=== PATIENT | female | born 1935 | race Caucasian/White ===

== ENCOUNTER 2017-07-28 07:10 | Inpatient (IN) | payer MEDICARE, OTHER ==
[2017-07-27 13:57] VITALS: BMI 25.8
[2017-07-28] VITALS (33 sets, daily range): BP systolic 85–169; BP diastolic 40–79; PULSE 66–112; RESP 8–23; Ht 165.1 cm; Wt 71.7 kg
[~2017-07-28] VITALS: Ht 165.1 cm; Wt 71.7 kg
[~2017-07-28 07:10] MED LIST: SUCCINYLCHOLINE CHLORIDE 100 MG/5 ML SYG IV ONE
[2017-07-28] MEDS ORDERED: WARF2TAB PO (07:55)
[2017-07-28] MEDS ORDERED: WARF4TAB52 PO (07:55)
[2017-07-28] MEDS ORDERED: BISO5TAB21 PO (07:56)
[2017-07-28] MEDS ORDERED: MAXZ25 PO (07:59)
[2017-07-28] MEDS ORDERED: CHOL100062 PO (08:00)
[2017-07-28] MEDS ORDERED: OXYC5CAP17 PO (08:02)
[2017-07-28] MEDS ORDERED: BIOT800T PO (08:03)
[2017-07-28 08:38] LABS: INR 0.95; PROTIME 12.7 Sec (12.2-14.2)
[2017-07-28 08:39] LABS: PARTIAL THROMBOPLASTIN TIME 25.3 Sec (25.0-35.0)
--- NOTE | 2017-07-28 09:48 | HPN ---
Date/Time of Note Date/Time of Note DATE: 07/28/17 TIME: 09:48 Interval H&P Admission Note Pt. seen H&P reviewed: No system changes RICK BECKMAN MD Jul 28, 2017 09:48
[2017-07-28] MEDS ORDERED: CEFAZOLIN 2 GM/50 ML (PMX) 50 ML IVPB ONE (10:07)
[2017-07-28] MEDS ORDERED: THROMBIN 5000 UNIT VIAL ONE (10:08)
[2017-07-28] MEDS ORDERED: BUPIVACAINE 0.25% (MPF) 10 ML 10 ML VIAL ONE (10:08)
[2017-07-28] MEDS ORDERED: GELATIN SIZE 100 SPONGE ONE (10:08)
[2017-07-28] MEDS ORDERED: POLYMYXIN/BACITRACIN 1L IRRIG ONE (10:08)
[2017-07-28] MEDS ORDERED: LIDOCAINE 1% (MDV) 20 ML INJ ONE (10:16)
[2017-07-28] MEDS ORDERED: ROCURONIUM 50 MG INJ ONE ×2 (10:16→11:07)
[2017-07-28] MEDS ORDERED: PROPOFOL 20 ML ONE (10:16)
[2017-07-28] MEDS ORDERED: MIDAZOLAM 1 MG/ML 2 ML INJ ONE (10:16)
[2017-07-28] MEDS ORDERED: FENTAnyl 50 MCG/ML VIAL ONE ×3 (10:16→12:34)
[2017-07-28] MEDS ORDERED: PHENYLephrine (100 MCG/ML) 5ML SYG ONE ×3 (10:39→12:11)
[2017-07-28] MEDS ORDERED: DEXAMETHASONE 4 MG/ML 1 ML INJ ONE (11:04)
[2017-07-28] MEDS ORDERED: ONDANSETRON 4 MG INJ ONE (11:04)
[2017-07-28] MEDS ORDERED: FAMOTIDINE 20 MG INJ ONE (11:04)
[2017-07-28] MEDS ORDERED: hydrALAzine 20 MG INJ ONE (11:12)
--- NOTE | 2017-07-28 11:45 | RADRPT ---
PROCEDURE: XR Lumbar Spine one view. CLINICAL INDICATION: Low back pain. Intraoperative. TECHNIQUE: Prone portable cross-table lateral. COMPARISON: No prior studies are available for comparison. FINDINGS: For the purposes of this report, the last apparent true disc level is considered to be L5-S1. Based on this, the posterior needle markers are present at the L2-3 level and L5-S1 level. IMPRESSION: 1. Intraoperative imaging as described above. RPTAT: QQ .Austen Hull MD, MD Date Time Electronically viewed and signed by .Austen Hull MD, MD on 07/28/2017 11:45 .R/
--- NOTE | 2017-07-28 11:47 | RADRPT ---
PROCEDURE: XR Lumbar Spine one view. CLINICAL INDICATION: Low back pain. Intraoperative. TECHNIQUE: Prone portable cross-table lateral. COMPARISON: No prior studies are available for comparison. FINDINGS: For the purposes of this report, the last apparent true disc level is considered to be L5-S1. Based on this, the posterior surgical instruments are present at the L3, L4, and L5 spinous process level s. IMPRESSION: 1. Intraoperative imaging as described above. Call report: A call report of the findings was made to the operating room on 07/28/[address] [place] [address]. RPTAT: QQ .Austen Hull MD, MD Date Time Electronically viewed and signed by .Austen Hull MD, MD on 07/28/2017 11:46 .R/
[2017-07-28] MEDS ORDERED: LABETALOL HCL 20MG INJ IV PRN (12:30)
[2017-07-28] MEDS ORDERED: ONDANSETRON 4 MG INJ IV PRN (12:30)
[2017-07-28] MEDS ORDERED: DIPHENHYDRAMINE 50 MG INJ IV PRN (12:30)
[2017-07-28] MEDS ORDERED: METOCLOPRAMIDE 10 MG INJ IV PRN (12:30)
[2017-07-28] MEDS ORDERED: HYDROmorphONE (0.2 MG/ML) 10ML SYG IV PRN (12:30)
[2017-07-28] MEDS ORDERED: MEPERIDINE 25 MG INJ IV PRN (12:30)
[2017-07-28] MEDS ORDERED: FENTAnyl 50 MCG/ML VIAL IV PRN ×2 (12:30)
[2017-07-28] MEDS ORDERED: hydrALAzine 20 MG INJ IV PRN (12:30)
[2017-07-28] MEDS ORDERED: NALOXONE (0.4 MG/ML) INJ ONE (13:01)
[2017-07-28] MEDS ORDERED: ESMOLOL 10 ML ONE (13:01)
[2017-07-28] MEDS ORDERED: SUGAMMADEX SODIUM 200 MG/2 ML VIAL IV ONE ×2 (13:03→13:16)
[2017-07-28] MEDS ORDERED: BACITRACIN 0.9 GM OINT ONE (13:25)
--- NOTE | 2017-07-28 13:48 | SIPON ---
Date/Time of Note Date/Time of Note DATE: 07/28/17 TIME: 13:39 Operative Report Preoperative Diagnosis Lumbar spinal stenosis at L2-L3-L4 and L5 Postoperative Diagnosis Same Operation/Procedure Performed Central decompressive laminectomy at L2 Central decompressive laminectomy at L3 Central decompressive laminectomy at L4 Central decompressive laminectomy at L5 Medial facetectomy and foraminotomy at L2-3, L3-4, L4-5, and L5-S1. Lateral localizing lumbar radiographs (2) Intraoperative nerve monitoring (120 minutes) Surgeon see signature line tourist information assistant Judith BRAYA Anesthesia: general Estimated blood loss: 50 - 100 ml's Transfusion Required none Specimen Spinous processes of L2-L3-L4 and L5 Grafts/Implants none Complications none RICK BECKMAN MD Jul 28, 2017 13:48
[2017-07-28] MEDS ORDERED: DIAZEPAM 5 MG TAB PO PRN (14:00)
[2017-07-28] MEDS ORDERED: DIAZEPAM 5 MG/ML SYG IM PRN (14:00)
[2017-07-28] MEDS ORDERED: AL HYDROX/MG HYDROX/SIMETH 30 ML CUP PO PRN (14:00)
[2017-07-28] MEDS ORDERED: PROCHLORPERAZINE 10 MG TAB PO PRN (14:00)
[2017-07-28] MEDS ORDERED: DIPHENHYDRAMINE 50 MG CAP PO PRN (14:00)
[2017-07-28] MEDS ORDERED: NALOXONE (0.4 MG/ML) INJ IV PRN (14:00)
[2017-07-28] MEDS: HYDROmorphONE (0.2 MG/ML) 10ML SYG IV PRN ×2 (14:00→14:10)
[2017-07-28] MEDS ORDERED: ZOLPIDEM 5 MG TAB PO PRN (14:00)
[2017-07-28] MEDS ORDERED: NACL 0.9% 3 ML SYG IV SCH (14:00)
[2017-07-28] MEDS ORDERED: CEPASTAT LOZENGE MT PRN (14:00)
[2017-07-28] MEDS ORDERED: TRIMETHOBENZAMIDE 100 MG/ML VIAL IM PRN (14:00)
[2017-07-28] MEDS ORDERED: BETHANECHOL 25 MG TAB PO PRN (14:00)
[2017-07-28] MEDS ORDERED: HYDROCODONE/APAP (5/325) TAB PO PRN (14:00)
[2017-07-28] MEDS ORDERED: HYDROmorphONE 0.2 MG/ML PCA IV SCH (14:00)
[2017-07-28] MEDS: DEXTROSE 5%-0.45% NACL 1,000 ML IV SCH ×2 (16:01→23:19)
--- NOTE | 2017-07-28 16:02 | OPR ---
DATE OF OPERATION: 07/28/2017 PREOPERATIVE DIAGNOSIS: Multilevel lumbar spinal stenosis, (L2- L5). POSTOPERATIVE DIAGNOSIS: Multilevel lumbar spinal stenosis, (L2- L5). OPERATIVE PROCEDURES: 1. Central decompressive laminectomy at L2. 2. Central decompressive laminectomy at L3. 3. Central decompressive laminectomy at L4. 4. Central decompressive laminectomy at L5. 5. Medial facetectomy and foraminotomy, L2-L3, L3-L4, L4-L5, and L5-S1 bilaterally. 6. Cosmetic wound closure (14 cm). 7. Lateral localized lumbar radiographs (2). 8. Intraoperative nerve monitoring (2 hours). SURGEON: Kristian Garcia MD WINDMILL MECHANIC: ALEX Ortiz ANESTHESIA: General tracheal. ANESTHESIOLOGIST: Dr. Wallace ESTIMATED BLOOD LOSS: 120 mL - none replaced. DRAINS: Two medium Hemovac drains applied. COMPLICATIONS: No complications. PERTINENT HISTORY AND PHYSICAL: The patient is an 82-year-old female with persistent back and lower extremity complaints, left greater than right, which have been unrelieved by extensive conservative management. She has undergone a number of diagnostic studies including an MRI of the lumbar spine, which demonstrates severe spinal stenosis at L2, L3, L4, and L5 with multilevel spondylosis. Treatment options were discussed with the patient, she elected to proceeed with surgery. OPERATIVE FINDINGS AT SURGERY: Multilevel severe spinal stenosis was confirmed. The baseline intraoperative nerve monitoring revealed a decrease in the left L2 potential 30 percent. The left L3 potential of 40 percent. The left L4 potential of 40 percent. The right L4 potential 30 percent and the L5 potentials bilaterally with 30 percent down these all returned to normal at the completion of the surgery. OPERATIVE PROCEDURE: With the patient supine position, after satisfactory induction of general endotracheal anesthesia by Dr. Wallace, the patient was turned to the prone kneeling position onto the [place] frame. All pressure points were carefully padded. The back was prepped and draped in the usual sterile fashion. Athrombic pumps were applied to legs below the knees. Venous stasis during and after procedure. An indwelling Short catheter was also placed preoperative to facilitate bladder drainage during and after procedure. An arterial line was placed by Dr. Wallace in the patient's left wrist for blood pressure monitoring. The 2 spinal needles were placed next at the L2 and L5 spinous processes, lateral radiograms were taken, which confirmed anatomic localization. A 14 cm incision was then carried out midline from L2 to the sacrum through skin and subcutaneous tissue to the deep fascia after the skin was infiltrated with 0.25 percent Marcaine without epinephrine for postoperative analgesia. Superficial retractors were placed. Hemostasis secured with electrocautery. Throughout the procedure copious amounts of antibacterial irrigating solution used to periodically irrigate the wound. The fascia was incised in the midline with a hot knife and a bilateral subperiosteal dissection carried out from L2 to the sacrum. Deep retractors were placed and deep hemostasis secured with electrocautery. A 2nd intraoperative radiograph was taken with Amanda clamps, placement was felt to be the spinous process of L3, L4, and L5. This was confirmed on the 2nd x-ray. A central decompressive laminectomy at L5, L4, L3 and L2 was then carried out using a Radha right angle bone rongeur, Leksell rongeur, Kerrison punches and curettes. Ligamentum flava was sized with sharp dissection. The operating microscope then moved into place. A medial facetectomy and foraminotomy was then accomplished using a small hand osteal mallet, Kerrison punch and curettes at L2-3, L3-4, L4-5, and L5, S1 bilaterally. The epidural hemostasis was secured with bipolar electrocautery on a low setting. The anesthesiologist was then asked to perform a Valsalva maneuver to 40 mmHg. No spinal fluid was noted. The wound was then closed in layers over 2 medium Hemovac drains, 1 below the fascia, 1 above the fascia using number 1 Vicryl Stratafix sutures on the deep parietal musculature and deep fascia back to 0 Vicryl Stratafix sutures on the subcu tissue and a 4-0 Vicryl subcuticular cosmetic closing suture on the skin. Dermabond and sterile compressive dressings were applied. The patient having tolerated the procedure well was then turned supine position onto her bed and extubated by Dr. Wallace. She was transported to the recovery room in satisfactory condition. At the conclusion of the procedure, sponge, instrument, and needle counts were all correct. NEED FOR ASSOCIATE PROFESSOR OF SURGERY: During this spinal surgical procedure, my dental assistant teacher was used to retract and protect the spinal nerves and dural sac. My dental assistant teacher also employed the suction catheters to evacuate blood from the surgical field to improve visualization of the neural structures. The dental assistant teacher was medically necessary to facilitate the completion of the surgery in a safe and expeditious manner. State of [place] regulations, as well as hospital bylaws, preclude the use of non- licensed health care personnel such as operating room technicians, to perform these functions. Throughout the procedure neuro monitoring was carried out by [employer] including EMG, SSEP and MEP monitoring of the L2, L3, L4, L5 and S1 nerve roots bilaterally along with spinal cord potentials. These were interpreted by a neurologist employed by [employer]. Dictated By: Kristian Garcia MD /leann/gregory /Document#: [id number] CC: Ritesh Young MD
--- NOTE | 2017-07-28 16:06 | RADRPT ---
PROCEDURE: US Lower extremity Venous. CLINICAL INDICATION: Bilateral lower extremity edema TECHNIQUE: Multiple sonographic images of the bilateral lower extremity deep venous system was obt ained utilizing grayscale, color-flow, compressive sonography and doppler imaging with augmentation. The images were reviewed on a PACS workstation. COMPARISON: None. FINDINGS: There is normal compressibility and flow within the bilateral common femoral, femoral , posterior ti bial and popliteal veins. RPTAT: AA IMPRESSION: No sonographic evidence for deep venous thrombosis. .Keith Turcios MD, MD Date Time Electronically viewed and signed by .Keith Turcios MD, on 07/28/2017 16:06 .S/
[2017-07-28] MEDS: CEFAZOLIN 1 GM/50 ML (PMX) 50 ML IVPB SCH (17:59)
--- NOTE | 2017-07-28 18:14 | CONS ---
DATE OF ADMISSION: 07/28/2017 DATE OF CONSULTATION: 07/28/2017 INTERNAL MEDICINE CONSULTATION: REQUESTING PHYSICIAN: Kristian Garcia MD REASON FOR CONSULTATION: Postoperative internal medicine evaluation and management of an 82-year-old woman with multiple medical problems who just completed lumbar spine surgery. The patient is seen in the recovery room, relatively alert, answered questions quite appropriately without any significant problems. Significant past history most relevant to the surgery is the fact that she had pulmonary embolus, source was never found, and she has been taking Coumadin on a daily basis. This was stopped about 4-5 days prior to the surgery. Her other medical conditions, which are numerous, are well described in her preoperative medical history and physical as well as her preoperative cardiac consultation/clearance. Of note, from a surgical standpoint, has had right shoulder surgery, suffers from both lumbar and cervical spine issues. Surgery left hand and had a hysterectomy as well as an oophorectomy and a bladder repair done in the past from a medical standpoint. She has had a stroke. She was diagnosed with a DVT somewhere along the line and also being treated for a variety of other medical issues including arthritis and hyperlipidemia and hypertension. SOCIAL HISTORY: She is a , has one daughter and 2 sons. She quit smoking 30 years ago and is currently tobacco free. FAMILY HISTORY: Basically positive for heart disease as well as hypertension and kidney failure. ALLERGIES: SHE HAS NO KNOWN ALLERGIES TO ANY MEDICATIONS. MEDICATIONS: She is currently taking the following medications as gleaned from the chart: 1. Aspirin 81 mg a day. 2. Biotin 600 mg a day. 3. Bystolic 5 mg a day. 4. Oxycodone 10 mg p.r.n. 5. Potassium chloride 10 mEq. 6. Maxzide 37.5/25 mg a day. 7. A variety of different vitamin supplementations. She was complaining of some back pain and lower extremity pain and the patient was admitted, transferred from the recovery room to the intensive care unit for further monitoring and evaluation. PHYSICAL EXAMINATION: VITAL SIGNS: Blood pressure 100/67, temperature 97.3, pulse monitor is 109, pulse oximetry was 95 percent and respiratory rate was 15. HEENT: Unremarkable. NECK: Supple. LUNGS: Clear. HEART: Revealed a regular rhythm. ABDOMEN: Did not reveal any significant organomegaly, masses or tenderness. EXTREMITIES: Revealed some mild trace edema with no real tenderness and pulses were intact. IMPRESSION: 1. Status post lumbar spine surgery. 2. History of pulmonary embolus. 3. History of cerebrovascular accident. 4. History of deep venous thrombosis. 5. Hypertension. 6. Spinal stenosis. 7. Multinodular goiter. 8. Gout. 9. Chronic hoarseness. PLAN: To obtain a venous Doppler both lower extremities which was done and was reported as being negative. Her preoperative medicines were continued. We will continue to monitor her in terms of her general medical condition. Condition postop is stable. On my second visit to see her in the ICU, the patient is doing quite well and will be kept here at least overnight. Thank you again, Dr. Garcia, for allowing us to participate in the care of this patient. Will follow with you. Dictated By: Ritesh Yonug MD /leann/roberto /Document#: [id number]
[2017-07-28] MEDS: RANITIDINE 150 MG TAB PO SCH (20:25)
[2017-07-29] VITALS (27 sets, daily range): BP systolic 72–167; BP diastolic 38–137; PULSE 52–92; RESP 9–28
[2017-07-29] MEDS: ONDANSETRON 4 MG INJ IV PRN ×3 (01:54→14:08)
[2017-07-29 02:11] LABS: HEMATOCRIT 42.8 % (37.0-47.0); HEMOGLOBIN 14.2 g/dl (12.0-16.0)
[2017-07-29 02:33] LABS: CALCIUM 9.2 mg/dl (8.4-10.2); CREATININE 0.77 mg/dl (0.44-1.00); POTASSIUM 3.8 mmol/L (3.5-5.1)
[2017-07-29 02:45] LABS: CK-MB 6.06 ng/ml (0.0-2.4)
[2017-07-29 02:57] LABS: TROPONIN-I 0.332 ng/ml (0.00-0.12)
[2017-07-29] MEDS: CEFAZOLIN 1 GM/50 ML (PMX) 50 ML IVPB SCH ×3 (05:51→13:16)
--- NOTE | 2017-07-29 07:20 | PN ---
Date/Time of Note Date/Time of Note DATE: 07/29/17 TIME: 07:17 Assessment/Plan Lines/Catheters IV Catheter Type (from Nrsg): Peripheral IV Short in Place (from Nrsg): Yes Subjective 24 Hr Interval Summary Patient is postop day #1 following a multilevel decompressive laminectomy from L2-L5. She is complaining of chest pain and shortness of breath. Internal medicine has been made aware and orders have been given. Neurovascular structures are intact distally. Her a.m. labs are normal exception of elevated troponin level. Repeat troponin level is pending. At this point I will leave her in ICU pending medical clearance to be transferred to the floor. Her Hemovac drain had 50 cc and will remain in place. Her Athrombic pumps were found unplugged this morning, and were restarted. Unable to determine how long they have been off. Nursing insurance licensing supervisor has been alerted. Exam/Review of Systems Vital Signs Vitals Vital Signs Date Time Temp Pulse Resp B/P Pulse Ox O2 Delivery O2 Flow Rate FiO2 07/29/17 06:00 71 11 146/57 92 Nasal Cannula 07/29/17 04:00 98.0 07/29/17 03:17 2.0 Intake and Output 07/28/17 07/28/17 07/29/17 15:00 23:00 07:00 Intake Total 2000 ml 890 ml 700 ml Output Total 545 ml 440 ml 330 ml Balance 1455 ml 450 ml 370 ml Results Result Diagram: 07/29/17 0206 07/29/17 0206 RICK BECKMAN MD Jul 29, 2017 07:20
[2017-07-29 07:28] LABS: CK-MB 12.4 ng/ml (0.0-2.4)
[2017-07-29 07:31] LABS: TROPONIN-I 1.45 ng/ml (0.00-0.12)
--- NOTE | 2017-07-29 08:56 | PN ---
DATE: 07/29/2017 SUBJECTIVE DATA: The patient seen approximately 7:30 a.m. on 07/29/2017. The patient is seen in the ICU, postop yesterday lumbar spine surgery. Had episodes of chest pain overnight. Cardiology consultation was obtained. Appropriate orders were put in place. The patient currently also complaining of pain and nausea, possibly secondary to her TEAM DRIVER. Of note, the patient does have a history of pulmonary emboli in the past; however, this pain appears to be somewhat different. Her Doppler was indeed negative yesterday. OBJECTIVE DATA: VITAL SIGNS: Revealed the following, blood pressure 146/57, pulse 71 and regular, respirations 14, temperature 98, O2 sat 92 percent with O2. HEENT: Unremarkable. LUNGS: Clear to percussion and auscultation. HEART: Reveals a regular rhythm. ABDOMEN: Unremarkable. IMPRESSION: 1. Status post lumbar spine surgery. 2. Chest pain, etiology unclear, but possibly cardiac. Rule out acute myocardial infection. 3. History of pulmonary embolism in the past. 4. Hypertension. 5. Post cerebrovascular accident. DISCUSSION: Awaiting formal cardiology consultation. Laboratory review does reveal stable hemoglobin and hematocrit. However, her CPK and troponins are markedly elevated with a CPK possibly secondary to recent surgery; however, the troponin remains unclear as to the source of their elevations. The rest of the chemistry panel is unremarkable. The EKG is not available at this point, we will order one for this morning as well. Discussion, again plan is to have patient evaluated by Cardiology to determine the etiology of the chest pain. TEAM DRIVER has been stopped and hopefully her nausea will be improving. CONDITION: At time of my evaluation is stable. Dictated By: Ritesh Young MD /leann/gregory /Document#: [id number]
[2017-07-29] MEDS ORDERED: HYDROCHLOROTHIAZIDE 25 MG TAB PO SCH (09:00)
[2017-07-29] MEDS ORDERED: BIOTIN 600 MCG PO SCH (09:00)
[2017-07-29] MEDS ORDERED: BISOPROLOL 5 MG TAB PO SCH (09:00)
[2017-07-29] MEDS ORDERED: NITROGLYCERIN 2% 1 GM OINT PKT ONE (10:12)
[2017-07-29] MEDS ORDERED: METOPROLOL 50 MG TAB PO ONE ×2 (10:30→11:00)
[2017-07-29] MEDS: FERROUS SULFATE (EC) 325 MG TAB PO SCH ×3 (10:30→20:03)
[2017-07-29] MEDS: CHOLECALCIFEROL 1,000 UNIT TAB PO SCH (10:30)
[2017-07-29] MEDS: ASCORBIC ACID 500 MG TAB PO SCH ×2 (10:30→20:03)
[2017-07-29] MEDS ORDERED: NITROGLYCERIN 2% 1 GM OINT PKT TD ONE (10:30)
[2017-07-29] MEDS: DOCUSATE SODIUM 100 MG CAP PO SCH ×2 (10:30→20:03)
[2017-07-29] MEDS ORDERED: ATORVASTATIN 80 MG TAB PO STA (10:31)
[2017-07-29] MEDS: RANITIDINE 150 MG TAB PO SCH ×2 (10:43→20:03)
[2017-07-29] MEDS: POTASSIUM CHLORIDE (SR) 20 MEQ TAB PO SCH ×2 (10:43→20:03)
--- NOTE | 2017-07-29 10:44 | CONS ---
Date/Time of Note Date/Time of Note DATE: 07/29/17 TIME: 10:33 Assessment/Plan Assessment/Plan Additional Assessment/Plan Chest pain and elevated troponin concerning for non-ST elevation myocardial infarction Status post laminectomy Preserved ejection fraction Coronary artery disease History of DVT and PE, was on Coumadin Hypertension -Extensive discussion had with patient's primary irish moss bleacher Dr. Honorio Lucero, her orthopedic surgeon Dr. Garcia an utility worker driver Dr. Young. -In discussion with Dr. Honorio Lucero, patient with history of cardiac catheterization approximately 4 years ago which demonstrated a 60% mid LAD lesion that was not flow-limiting with FFR evaluation. Patient underwent nuclear cardiac perfusion study last week with no evidence of any significant abnormalities. Furthermore, patient with history of PE and DVT approximately 4- 5 years ago and Coumadin has been stopped prior to procedure. -In discussion with the orthopedic surgeon, patient status post laminectomy yesterday and any anticoagulants or antiplatelet therapy would be catastrophic with a high likelihood of paralysis. -ECG initially with T-wave abnormalities which have since improved. Bedside echocardiogram with preserved ejection fraction but evidence of apical anterolateral wall motion abnormalities. CK and troponins are elevated. Given unable to use antiplatelet therapy or heparin, would give beta-chris as blood pressure permits, with heart rate goal of 60 or less, high dose statin therapy and nitroglycerin. Given history of pulmonary emboli and DVT, I will order venous Doppler study, CT PE angiogram and if possible, also evaluate the coronaries of the same time. Continue patient in the ICU. -Plan of care discussed with patient at bedside. Consultation Date/Type/Reason Admit Date/Time Jul 28, 2017 at 07:10 Type of Consultation: cv Reason for Consultation Elevated troponin Hx of Present Illness This is an 82-year-old female with past medical history of DVT/PE on anticoagulation, hypertension, moderate coronary artery disease who underwent laminectomy yesterday. Postoperatively, patient with on and off chest pain. Chest pain was aching like in nature associated with nausea and shortness of breath. Patient did vomit as well during episodes of chest pain. Cardiac enzymes obtained demonstrate elevation and for this reason cardiology consultation was requested. Patient currently denies any chest pain but did have symptoms a few minutes ago. She denies any shortness of breath, dizziness or lightheadedness. 12 point review of systems was performed with all pertinent positives and negatives mentioned above and all else is negative Past Medical History DVT/PE Medical History: coronary artery disease, high cholesterol Past Surgical History Past Surgical Hx: other (Shoulder surgery, coronary angiogram approximately 4 years ago) Family History Significant Family History: no pertinent family hx Social History Smoking Status: Former smoker Other Social History Lives at home Exam/Review of Systems Vital Signs Vitals Vital Signs Date Time Temp Pulse Resp B/P Pulse Ox O2 Delivery O2 Flow Rate FiO2 07/29/17 09:00 60 12 156/65 100 Nasal Cannula 2.0 07/29/17 08:00 98.3 Intake and Output 07/28/17 07/28/17 07/29/17 15:00 23:00 07:00 Intake Total 2000 ml 890 ml 700 ml Output Total 545 ml 440 ml 370 ml Balance 1455 ml 450 ml 330 ml Exam No apparent distress Constitutional: alert, oriented Head: normocephalic Respiratory: other (Coarse breath sounds bilaterally, no wheezing) Cardiovascular: other (S1-S2 heard), regular rate and rhythm Gastrointestinal: bowel sounds, non-tender, other (No guarding), soft Extremities: edema Results Result Diagram: 07/29/17 0206 07/29/17 0206 Results 24 hrs Laboratory Tests Test 07/29/17 02:06 07/29/17 06:38 Hemoglobin 14.2 Hematocrit 42.8 Sodium Level 136 Potassium Level 3.8 Chloride Level 101 Carbon Dioxide Level 29 Anion Gap 10 Blood Urea Nitrogen 11 Creatinine 0.77 Glucose Level 161 Calcium Level 9.2 Creatinine Kinase MB (Mass) 6.06 H 12.40 H Troponin I 0.332 *H 1.450 *H Creatine Kinase 237 H Creatine Kinase Index 5.2 Medications Medications Current Medications Dextrose/Sodium Chloride (D5-1/2ns) 1,000 ml @ 60 mls/hr [id number] IV Last administered on 07/28/17t 23:19; Admin Dose 100 MLS/HR; Start 07/28/17 at 13:36 Acetaminophen/ Hydrocodone Bitart (Ruth (5/325)) 1 tab Q4H PRN PO PAIN LEVEL 1 -5; Start 07/28/17 at 14:00 Acetaminophen/ Hydrocodone Bitart 2 tab 2 tab Q4H PRN PO PAIN LEVEL 6-10; Start 07/28/17 at 14:00 Cefazolin Sodium (Ancef 1 Gm/50 ml (Pmx)) 50 ml @ 100 mls/hr Q6 IVPB Last administered on 07/29/17 05:51; Admin Dose 100 MLS/HR; Start 07/28/17 at 18:00 ; Stop 07/29/17 at 12:29 Zolpidem Tartrate (Ambien) 5 mg HS PRN PO INSOMNIA; Start 07/28/17 at 14:00 Prochlorperazine (Compazine) 10 mg Q4H PRN PO NAUSEA AND/OR VOMITING Last administered on 07/29/17 05:54; Admin Dose 10 MG; Start 07/28/17 at 14:00 Trimethobenzamide HCl (Tigan) 200 mg Q4H PRN IM NAUSEA AND/OR VOMITING; Start 07/28/17 at 14:00 Ondansetron HCl (Zofran Inj) 4 mg Q6H PRN IV NAUSEA AND/OR VOMITING Last administered on 07/29/17 08:03; Admin Dose 4 MG; Start 07/28/17 at 14:00 Al Hydrox/Mg Hydrox/Simethicone (Mag-Al Plus) 15 ml Q4H PRN PO CONSTIPATION; Start 07/28/17 at 14:00 Docusate Sodium (Colace) 100 mg BID PO ; Start 07/29/17 at 09:00 Acetaminophen (Tylenol Tab) 650 mg Q4H PRN PO TEMP GREATER THAN 101F OR FUNEZ; Start 07/28/17 at 14:00 Ascorbic Acid (Vitamin C) 1,000 mg BID PO ; Start 07/29/17 at 09:00 Ferrous Sulfate (Ferrous Sulfate (Ec)) 325 mg TID PO ; Start 07/29/17 at 09:00 Ranitidine HCl (Zantac) 150 mg BID PO Last administered on 07/28/17 20:25; Admin Dose 150 MG; Start 07/28/17 at 21:00 Diazepam (Valium) 5 mg Q4H PRN PO MUSCLE SPASMS; Start 07/28/17 at 14:00 Diazepam (Valium) 5 mg Q4H PRN IM MUSCLE SPASMS Last administered on 07/29/17 02:55; Admin Dose 5 MG; Start 07/28/17 at 14:00 Phenol (Cepastat Lozenge) 1 lozenge PRN PRN MT SORE THROAT; Start 07/28/17 at 14:00 Bethanechol Chloride (Urecholine) 25 mg PRN PRN PO UNABLE TO VOID; Start at 14:00 Diphenhydramine HCl (Benadryl) 50 mg Q6H PRN PO PRURITUS; Start 07/28/17 at 14: 00 Naloxone HCl (Narcan) 0.2 mg Q2M PRN IV RR 8 BREATHS/MIN OR LESS; Start at 14:00 Bisoprolol Fumarate (Zebeta) 5 mg DAILY PO ; Start 07/29/17 at 09:00 Cholecalciferol (Vitamin D) 2,000 unit DAILY PO ; Start 07/29/17 at 09:00 Oxycodone HCl (Roxicodone) 10 mg TID PRN PO PAIN; Start 07/28/17 at 16:30 Hydrochlorothiazide (Hydrochlorothiazide) 25 mg DAILY PO ; Start 07/29/17 at 09: 00 Potassium Chloride (Klor-Con 20) 20 meq BID PO ; Start 07/29/17 at 09:00 Procedures Procedures ECG done this morning demonstrates sinus rhythm at 70 bpm, poor R-wave progression, nonspecific ST abnormalities ECG done at 1:37 AM demonstrates sinus rhythm 86 bpm, T-wave inversions seen in inferior leads, poor R-wave progression Torres Funez DO Jul 29, 2017 10:44
[2017-07-29] MEDS: DEXTROSE 5%-0.45% NACL 1,000 ML IV SCH ×2 (10:45→17:02)
[2017-07-29 13:12] LABS: CK-MB 36.5 ng/ml (0.0-2.4)
[2017-07-29 13:17] LABS: TROPONIN-I 8.2 ng/ml (0.00-0.12)
[2017-07-29] MEDS: oxyCODONE 5 MG TAB PO PRN ×2 (13:17→22:02)
--- NOTE | 2017-07-29 14:00 | RADRPT ---
Echocardiogram Report Patient Name: WILVER RYAN Gender: Female Date: 1935 Study Date: 29-Jul-2017 Director Sterile Processing: Arpan Owusu RDCS Location: 118 Ref. Physician: TORRES FUNEZ Quality: Adequate Procedures: Transthoracic echocardiogram with complete 2D, M-Mode, and doppler examination. Indications: Myocardial Infarction. 2D/M Mode Doppler Measurement Value Normal Ranges Measurement Value Normal Ranges LVIDd 2D 3.8 3.5 - 5.6 cm MARYANN Vmax 2.6 cm2 LVIDs 2D 2.4 2.1 - 4.1 cm MARYANN VTI 3.2 cm2 LVPWd 2D 1.2 0.6 - 1.1 cm LVOT Mean Fahad 0.7 m/sec IVSd 2D 1.2 0.6 - 1.1 cm LVOT Peak Fahad 1.1 m/sec AoR Diam 2D 3.1 2.0 - 3.7 cm LVOT Peak PG 4.8 mmHg EDV 2D 61.6 cm3 MV E Peak Fahad 0.7 m/sec ESV 2D 14.6 cm3 MV A Peak Fahad 1.0 m/sec LA Dimen 2D 2.8 2.3 - 4.0 cm MV E/A 0.7 MV Decel Time 189 msec MV Decel Rice 4 MV E/A 0.7 TR Peak Fahad 3.0 m/sec TR Peak PG 37.0 mmHg RVSP 52.0 mmHg Findings Left Ventricle: Normal left ventricular systolic function. Normal left ventricular cavity size. Mild concentric left ventricular hypertrophy. Ejection fraction is visually estimated at 55 %. Tissue Doppler/Mitral Doppler indices are consistent with impaired relaxation (Stage I diastolic dysfunction). These segments of the LV are hypokinetic apical anterior segment, anteroseptum mid segment and apical septum. Right Ventricle: Normal right ventricular size. Normal right ventricular systolic function. Left Atrium: The left atrium is normal in size. Right Atrium: The right atrium is normal in size. Mitral Valve: Mitral valve leaflets appear mildly thickened. Mild mitral annular calcification. Trace mitral regurgitation. Aortic Valve: Aortic valve Max velocity 1.94 m/sec. Max PG 15.00 mmHg. Mean PG 17.00 mmHg. Aortic sclerosis without stenosis. Trace aortic valve regurgitation. Tricuspid Valve: Normal appearance of the tricuspid valve. Estimated peak PA systolic pressure 52 mmHg. There is mild tricuspid regurgitation. Pulmonic Valve: Normal pulmonic valve appearance. No evidence of pulmonic regurgitation. Pericardium: Normal pericardium with no significant pericardial effusion. Aorta: Normal aortic root. IVC: Dilated IVC without respiratory collapse consistent with elevated right atrial pressure. Conclusions 1.Normal left ventricular systolic function. Normal left ventricular cavity size. Mild concentric left ventricular hypertrophy. Ejection fraction is visually estimated at 55 %. Tissue Doppler/Mitral Doppler indices are consistent with impaired relaxation (Stage I diastolic dysfunction). These segments of the LV are hypokinetic apical anterior segment, anteroseptum mid segment and apical septum. 2.Normal right ventricular size. Normal right ventricular systolic function. 3.The left atrium is normal in size. 4.The right atrium is normal in size. 5.Estimated peak PA systolic pressure 52 mmHg. There is mild tricuspid regurgitation. 6.No significant valvular stenosis or regurgitation seen of remaining visualized valves. 7.Normal pericardium with no significant pericardial effusion. Electronically Signed By: Torres Funez 29-Jul-2017 13:59:52 -0700 Patient Name: WILVER RYAN Study Date: 29-Jul-2017 [id number]
[2017-07-29] MEDS ORDERED: NITROGLYCERIN AEROSOL (4.9 GM) ONE (14:30)
[2017-07-29] MEDS ORDERED: IOHEXOL 0 ML ONE (14:34)
[2017-07-29] MEDS ORDERED: IOHEXOL 350MG/ML 50 ML BTL ONE (14:34)
[2017-07-29] MEDS ORDERED: SOD CHLORIDE 0.9% 0 ML ONE (14:34)
--- NOTE | 2017-07-29 15:06 | RADRPT ---
Vent Rate: 69 bpm RR Interval: 0 msec [place] Interval: 180 msec QRS Duration: 78 msec QT Interval: 410 msec QTC Interval: 439 msec P-R-T [place]: 86 - 62 - 11 degrees Normal sinus rhythm with sinus arrhythmia Possible Left atrial enlargement ST abnormality, possible digitalis effect Abnormal ECG Electronically Signed By: Torres Funez [id number]
--- NOTE | 2017-07-29 15:07 | RADRPT ---
Vent Rate: 70 bpm RR Interval: 0 msec [place] Interval: 182 msec QRS Duration: 78 msec QT Interval: 414 msec QTC Interval: 447 msec P-R-T [place]: 66 - 60 - 65 degrees Normal sinus rhythm Anterior infarct , age undetermined Abnormal ECG Electronically Signed By: Torres Funez [id number]
--- NOTE | 2017-07-29 15:08 | RADRPT ---
Vent Rate: 61 bpm RR Interval: 0 msec [place] Interval: 180 msec QRS Duration: 86 msec QT Interval: 436 msec QTC Interval: 438 msec P-R-T [place]: 82 - 74 - 75 degrees Normal sinus rhythm Cannot rule out Anterior infarct , age undetermined Abnormal ECG Electronically Signed By: Torres Funez [id number]
[2017-07-29] MEDS: FUROSEMIDE 20 MG TAB PO SCH (17:02)
[2017-07-29] MEDS: METOPROLOL 50 MG TAB PO SCH (20:04)
[2017-07-29 22:04] LABS: CALCIUM 9.1 mg/dl (8.4-10.2); CREATININE 0.81 mg/dl (0.44-1.00); POTASSIUM 3.7 mmol/L (3.5-5.1)
[2017-07-29 22:29] LABS: CK-MB 30.9 ng/ml (0.0-2.4)
[2017-07-29 22:31] LABS: TROPONIN-I 23.6 ng/ml (0.00-0.12)
[2017-07-30] VITALS (23 sets, daily range): BP systolic 91–178; BP diastolic 41–158; PULSE 55–105; RESP 13–26
[2017-07-30 01:31] LABS: CK-MB 25.1 ng/ml (0.0-2.4)
[2017-07-30] MEDS: DEXTROSE 5%-0.45% NACL 1,000 ML IV SCH (05:33)
[2017-07-30 06:25] LABS: BASOPHILS % 0.4 % (0.0-2.0); EOSINOPHILS % 0.3 % (0.0-7.0); HEMATOCRIT 40.5 % (37.0-47.0); HEMOGLOBIN 13.1 g/dl (12.0-16.0); LYMPHOCYTES # 0.8 10^3/ul (0.8-2.9); LYMPHOCYTES % 8.5 % (15.0-51.0); MEAN CORPUSCULAR HEMOGLOBIN 30.4 pg (29.0-33.0); MEAN CORPUSCULAR HGB CONC 32.3 g/dl (32.0-37.0); MEAN PLATELET VOLUME 9.6 fl (7.4-10.4); MONOCYTE # 1.2 10^3/ul (0.3-0.9); MONOCYTES % 12.4 % (0.0-11.0); NEUTROPHIL # 7.5 10^3/ul (1.6-7.5); NEUTROPHILS % 77.9 % (39.0-77.0); PLATELET COUNT 243 10^3/UL (140-415); RED BLOOD COUNT 4.31 10^6/ul (4.20-5.40); RED CELL DISTRIBUTION WIDTH 13.7 % (11.5-14.5); WHITE BLOOD COUNT 9.7 10^3/ul (4.8-10.8)
[2017-07-30 06:56] LABS: ALBUMIN 3.1 g/dl (3.3-4.9); ALBUMIN/GLOBULIN RATIO 1.03; BILIRUBIN,INDIRECT 0.7 mg/dl (0-1.1); BILIRUBIN,TOTAL 0.7 mg/dl (0.2-1.3); CALCIUM 8.7 mg/dl (8.4-10.2); CREATININE 0.71 mg/dl (0.44-1.00); POTASSIUM 3.6 mmol/L (3.5-5.1); TOTAL PROTEIN 6.1 g/dl (6.1-8.1)
--- NOTE | 2017-07-30 07:03 | PN ---
Date/Time of Note Date/Time of Note DATE: 07/30/17 TIME: 07:00 Assessment/Plan Lines/Catheters IV Catheter Type (from Nrs): Saline Lock Short in Place (from Nrs): Yes Subjective 24 Hr Interval Summary Patient is postop day #2 following a multilevel decompressive laminectomy from L2-L5. She is uncomfortable in bed having not been allowed to ambulate since her surgery. She has been seen by Dr. Funez in cardiac consultation. I spoke with him by phone yesterday. Cardiac workup is in progress. Neurovascular structures are intact distally. A.m. labs are unremarkable except for cardiac enzymes. I will speak to Dr. Young and [place] later today regarding mobilization with PT. her Hemovac output was 20 cc since yesterday and will be discontinued. Exam/Review of Systems Vital Signs Vitals Vital Signs Date Time Temp Pulse Resp B/P Pulse Ox O2 Delivery O2 Flow Rate FiO2 07/30/17 06:00 83 18 178/158 95 07/30/17 04:00 97.5 07/30/17 01:45 2.0 07/29/17 20:58 21 07/29/17 16:00 Nasal Cannula Intake and Output 07/29/17 07/29/17 07/30/17 15:00 23:00 07:00 Intake Total 650 ml 710 ml 420 ml Output Total 195 ml 435 ml 705 ml Balance 455 ml 275 ml -285 ml Results Result Diagram: 07/30/17 0610 07/29/17 2055 RICK BECKMAN MD Jul 30, 2017 07:03
--- NOTE | 2017-07-30 08:50 | PN ---
DATE: 07/30/2017 SUBJECTIVE DATA: The patient is alert after being woken up. States she had a good night. Had a good day yesterday. Would love to get out of bed. We will defer that to Cardiology. Today, she has no significant complaints in terms of pain other than some minor back pain. No complaining of any chest pains at this point. OBJECTIVE DATA: VITAL SIGNS: Revealed the following, the patient's blood pressure 156/72, pulse 59 and regular, respirations 18, temperature 97.5, O2 sat 94 percent. HEENT: Unremarkable. LUNGS: Clear. HEART: Reveals a regular rhythm. ABDOMEN: Unremarkable. MENTAL STATUS: Alert. IMPRESSION: 1. Status post lumbar spine surgery. 2. Probable acute myocardial infarction. 3. Hypertension. 4. Post cerebrovascular accident and pulmonary emboli. LABORATORY AND DIAGNOSTIC DATA: Review of laboratory reveals the following, the patient's CBC is basically normal with a white count normalizing. Her chemistries reveal her sodium to be somewhat low at 129 with normal potassium as well as the rest of her electrolytes. ALT is minimally elevated at 90. Her troponins and her CPK unfortunately are markedly elevated, compatible with her acute AR state. Coag studies were not done. DISCUSSION: Plan would be to try and mobilize this patient and have her ambulate. We will discuss with Cardiology, Dr. Garcia's note is appreciated and concurred that it would be important to get this lady out of bed and moving; however, we will defer that to Dr. Funez, the Adult Crossing Guard. Thank you again, Dr. Garcia for allowing us to participate in the care of this patient. Dictated By: Ritesh Young MD /leann/gregory /Document#: [id number]
[2017-07-30 09:33] LABS: CK-MB 16.6 ng/ml (0.0-2.4)
[2017-07-30 09:36] LABS: TROPONIN-I 19.2 ng/ml (0.00-0.12)
[2017-07-30] MEDS: DOCUSATE SODIUM 100 MG CAP PO SCH ×2 (10:01→21:32)
[2017-07-30] MEDS: POTASSIUM CHLORIDE (SR) 20 MEQ TAB PO SCH ×2 (10:01→21:32)
[2017-07-30] MEDS: RANITIDINE 150 MG TAB PO SCH ×2 (10:01→21:33)
[2017-07-30] MEDS: ASCORBIC ACID 500 MG TAB PO SCH ×2 (10:02→21:32)
[2017-07-30] MEDS: METOPROLOL 50 MG TAB PO SCH ×3 (10:02→21:34)
[2017-07-30] MEDS: FERROUS SULFATE (EC) 325 MG TAB PO SCH ×3 (10:02→21:32)
[2017-07-30] MEDS: FUROSEMIDE 20 MG TAB PO SCH (10:02)
[2017-07-30] MEDS: CHOLECALCIFEROL 1,000 UNIT TAB PO SCH (10:05)
[2017-07-30] MEDS ORDERED: ASPIRIN (EC) 325 MG TAB PO ONE (11:30)
--- NOTE | 2017-07-30 12:18 | CONS ---
Date/Time of Note Date/Time of Note DATE: 07/30/17 TIME: 12:09 Assessment/Plan Assessment/Plan Additional Assessment/Plan Non-ST elevation myocardial infarction Status post laminectomy Preserved ejection fraction Coronary artery disease History of DVT and PE, was on Coumadin Hypertension -Extensive discussion had with patient's primary veterinary medicine teacher Dr. Honorio Lucero, her orthopedic surgeon Dr. Garcia an senior net web developer Dr. Young. -In discussion with Dr. Honorio Lucero, patient with history of cardiac catheterization approximately 4 years ago which demonstrated a 60% mid LAD lesion that was not flow-limiting with FFR evaluation. Patient underwent nuclear cardiac perfusion study last week with no evidence of any significant abnormalities. Furthermore, patient with history of PE and DVT approximately 4- 5 years ago and Coumadin has been stopped prior to procedure. -In discussion with the orthopedic surgeon twice this morning, given patient is near 48 hours post surgery, surgery is okay with initiation of aspirin today. Based on her response and surgical evaluation in the morning, could start Plavix tomorrow as well as full dose heparin. Of note, troponins are currently trending down. -CT pulmonary angiogram was ordered yesterday and patient refused. She is reconsidering this morning. Would increase beta-chris as blood pressure permits to maintain heart rate close to 60. Continue statin therapy. Nitroglycerin as needed. Continue patient in the ICU. -Plan of care discussed with patient at bedside. Consultation Date/Type/Reason Admit Date/Time Jul 28, 2017 at 07:10 Initial Consult Date Type of Consultation: cv 24 HR Interval Summary Free Text/Dictation Denies any further chest pain since yesterday morning. Denies shortness of breath, dizziness. Feels uncomfortable in bed and asking to sit up. Unable to use bedpan in bed. Exam/Review of Systems Vital Signs Vitals Vital Signs Date Time Temp Pulse Resp B/P Pulse Ox O2 Delivery O2 Flow Rate FiO2 07/30/17 08:00 60 07/30/17 06:00 18 178/158 95 07/30/17 04:00 97.5 07/30/17 01:45 2.0 07/29/17 20:58 21 07/29/17 16:00 Nasal Cannula Intake and Output 07/29/17 07/29/17 07/30/17 15:00 23:00 07:00 Intake Total 650 ml 710 ml 420 ml Output Total 195 ml 435 ml 705 ml Balance 455 ml 275 ml -285 ml Exam No apparent distress Constitutional: alert, oriented Head: normocephalic Respiratory: other (Coarse breath sounds bilaterally, no wheezing) Cardiovascular: other (S1-S2 heard), regular rate and rhythm Gastrointestinal: bowel sounds, non-tender, other (No guarding), soft Extremities: other (No significant edema) Results Result Diagram: 07/30/17 0610 07/30/17 0609 Results 24 hrs Laboratory Tests Test 07/29/17 20:55 07/30/17 00:39 07/30/17 06:09 07/30/17 06:10 Sodium Level 130 L 129 L Potassium Level 3.7 3.6 Chloride Level 95 L 96 L Carbon Dioxide Level 30 29 Anion Gap 9 8 Blood Urea Nitrogen 11 10 Creatinine 0.81 0.71 Glucose Level 143 147 Calcium Level 9.1 8.7 Creatine Kinase 458 H 403 H 277 H Creatine Kinase Index 6.7 6.2 6.0 Creatinine Kinase MB (Mass) 30.90 H 25.10 H 16.60 H Troponin I 23.600 *H 25.000 *H 19.200 *H Total Bilirubin 0.7 Direct Bilirubin 0.00 Indirect Bilirubin 0.7 Aspartate Amino Transf (AST/SGOT) 90 H Alanine Aminotransferase (ALT/SGPT) 32 Alkaline Phosphatase 61 Total Protein 6.1 Albumin 3.1 L Globulin 3.00 Albumin/Globulin Ratio 1.03 White Blood Count 9.7 Red Blood Count 4.31 Hemoglobin 13.1 Hematocrit 40.5 Mean Corpuscular Volume 94.0 Mean Corpuscular Hemoglobin 30.4 Mean Corpuscular Hemoglobin Concent 32.3 Red Cell Distribution Width 13.7 Platelet Count 243 Mean Platelet Volume 9.6 Neutrophils % 77.9 H Lymphocytes % 8.5 L Monocytes % 12.4 H Eosinophils % 0.3 Basophils % 0.4 Nucleated Red Blood Cells % 0.0 Neutrophils # 7.5 Lymphocytes # 0.8 Monocytes # 1.2 H Eosinophils # 0.0 Basophils # 0.0 Nucleated Red Blood Cells # 0.0 Medications Medications Current Medications Dextrose/Sodium Chloride (D5-1/2ns) 1,000 ml @ 60 mls/hr [id number] IV Last administered on 07/30/17t 05:33; Admin Dose 60 MLS/HR; Start 07/28/17 at 13:36 Acetaminophen/ Hydrocodone Bitart (Waldo (5/325)) 1 tab Q4H PRN PO PAIN LEVEL 1 -5; Start 07/28/17 at 14:00 Acetaminophen/ Hydrocodone Bitart (Waldo (5/325)) 2 tab Q4H PRN PO PAIN LEVEL 6 -10; Start 07/28/17 at 14:00 Zolpidem Tartrate (Ambien) 5 mg HS PRN PO INSOMNIA; Start 07/28/17 at 14:00 Prochlorperazine (Compazine) 10 mg Q4H PRN PO NAUSEA AND/OR VOMITING Last administered on 07/29/17 05:54; Admin Dose 10 MG; Start 07/28/17 at 14:00 Trimethobenzamide HCl (Tigan) 200 mg Q4H PRN IM NAUSEA AND/OR VOMITING; Start 07/28/17 at 14:00 Ondansetron HCl (Zofran Inj) 4 mg Q6H PRN IV NAUSEA AND/OR VOMITING Last administered on 07/29/17 14:08; Admin Dose 4 MG; Start 07/28/17 at 14:00 Al Hydrox/Mg Hydrox/Simethicone (Mag-Al Plus) 15 ml Q4H PRN PO CONSTIPATION; Start 07/28/17 at 14:00 Docusate Sodium (Colace) 100 mg BID PO Last administered on 07/30/17 10:01; Admin Dose 100 MG; Start 07/29/17 at 09:00 Acetaminophen (Tylenol Tab) 650 mg Q4H PRN PO TEMP GREATER THAN 101F OR FNUEZ; Start 07/28/17 at 14:00 Ascorbic Acid (Vitamin C) 1,000 mg BID PO Last administered on 07/30/17 10:02 ; Admin Dose 1,000 MG; Start 07/29/17 at 09:00 Ferrous Sulfate (Ferrous Sulfate (Ec)) 325 mg TID PO Last administered on 10:02; Admin Dose 325 MG; Start 07/29/17 at 09:00 Ranitidine HCl (Zantac) 150 mg BID PO Last administered on 07/30/17 10:01; Admin Dose 150 MG; Start 07/28/17 at 21:00 Diazepam (Valium) 5 mg Q4H PRN PO MUSCLE SPASMS; Start 07/28/17 at 14:00 Diazepam (Valium) 5 mg Q4H PRN IM MUSCLE SPASMS Last administered on 07/29/17 02:55; Admin Dose 5 MG; Start 07/28/17 at 14:00 Phenol (Cepastat Lozenge) 1 lozenge PRN PRN MT SORE THROAT; Start 07/28/17 at 14:00 Bethanechol Chloride (Urecholine) 25 mg PRN PRN PO UNABLE TO VOID; Start at 14:00 Diphenhydramine HCl (Benadryl) 50 mg Q6H PRN PO PRURITUS; Start 07/28/17 at 14: 00 Naloxone HCl (Narcan) 0.2 mg Q2M PRN IV RR 8 BREATHS/MIN OR LESS; Start at 14:00 Cholecalciferol (Vitamin D) 2,000 unit DAILY PO Last administered on 07/30/17 10:05; Admin Dose 2,000 UNIT; Start 07/29/17 at 09:00 Oxycodone HCl (Roxicodone) 10 mg TID PRN PO PAIN Last administered on 22:02; Admin Dose 10 MG; Start 07/28/17 at 16:30 Potassium Chloride (Klor-Con 20) 20 meq BID PO Last administered on 07/30/17 10:01; Admin Dose 20 MEQ; Start 07/29/17 at 09:00 Atorvastatin Calcium (Lipitor) 80 mg HS PO ; Start 07/30/17 at 21:00 Metoprolol Tartrate (Lopressor) 50 mg BID PO Last administered on 07/30/17 10: 02; Admin Dose 50 MG; Start 07/29/17 at 21:00 Furosemide (Lasix) 20 mg DAILY PO Last administered on 07/30/17 10:02; Admin Dose 20 MG; Start 07/29/17 at 16:30 Clonidine (Catapres) 0.1 mg Q4H PRN PO ELEVATED SYSTOLIC BP Last administered on 07/30/17 06:17; Admin Dose 0.1 MG; Start 07/30/17 at 02:30 Aspirin (Halfprin) 81 mg DAILY PO ; Start 07/31/17 at 09:00 Torres Funez DO Jul 30, 2017 12:18
[2017-07-30] MEDS: LISINOPRIL 5 MG TAB PO SCH ×2 (13:11→21:00)
--- NOTE | 2017-07-30 14:07 | RADRPT ---
Vent Rate: 78 bpm RR Interval: 0 msec [place] Interval: 164 msec QRS Duration: 76 msec QT Interval: 410 msec QTC Interval: 467 msec P-R-T [place]: 0 - 87 - 134 degrees Normal sinus rhythm Anterior infarct , age undetermined Abnormal ECG Electronically Signed By: Tarun Ernst [id number]
--- NOTE | 2017-07-30 14:07 | RADRPT ---
Vent Rate: 69 bpm RR Interval: 0 msec [place] Interval: 172 msec QRS Duration: 76 msec QT Interval: 410 msec QTC Interval: 439 msec P-R-T [place]: 72 - 71 - 110 degrees Normal sinus rhythm Anterior infarct , age undetermined Abnormal ECG Electronically Signed By: Tarun Ernst [id number]
[2017-07-30] MEDS ORDERED: IODIXANOL LOCM 100 ML BTL ONE (15:36)
[2017-07-30] MEDS ORDERED: SOD CHLORIDE 0.9% 100 ML ONE (15:36)
--- NOTE | 2017-07-30 16:02 | RADRPT ---
PROCEDURE: CTA Chest with contrast and with 3-D reconstructions CLINICAL INDICATION: POST OP IL, HX DVT/MT, pulmonary embolism TECHNIQUE: The study was performed utilizing multidetector CT scanner. Direct spiral axial section s were obtained from the thoracic inlet to the upper abdomen with the use of intravenous contrast ma terial (100 cc of Visipaque 320). Sagittal, coronal and 3-D reformations were obtained. The images w ere reviewed on a PACS workstation. DLP 509.69 mGycm CTDIvol 35.21, 11.82 mGy One or more of the following dose reduction techniques were used: - Automated exposure control. - Adjustment of the mA and/or kV according to patient size. - Use of iterative reconstruction technique. COMPARISON: No prior studies are available for comparison. FINDINGS: There are no pulmonary emboli. A sub-centimeter calcified granulomas identified in the right upper lobe. There are trace bilateral pleural effusions with subsegmental compressive bibasilar atelectasis. There is mild pulmonary vascu lar congestion. There is no pneumothorax. There is mild cardiomegaly with prominent hypertrophy of the left ventricle. There is no pericardial fluid. There is mild aneurysmal dilatation of the distal aortic arch which measures up to 3.3 cm i n diameter. There are no enlarged axillary or mediastinal lymph nodes. Severe short segment narrowing of the proximal SMA is identified on series 4, image 244. There is pr ominent fatty atrophy of the pancreas. Cholelithiasis is partially visualized. The liver demonstrate s a nodular contour and there is trace perihepatic ascites suggestive of cirrhosis. Osseous and soft tissue structures are within normal limits. IMPRESSION: No CT evidence for pulmonary embolus. Mild cardiomegaly with prominence of the left ventricle and mild pulmonary vascular congestion. 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 Nodular liver contour and trace ascites suggestive of cirrhosis. RPTAT: EE Physician Qi Date Time Electronically viewed and signed by Javier Faye Physician on 07/30/2017 16:02 SUKH
[2017-07-30] MEDS: HYDROCODONE/APAP (5/325) TAB PO PRN (21:32)
[2017-07-30] MEDS: ATORVASTATIN 80 MG TAB PO SCH (21:32)
[2017-07-31] VITALS (23 sets, daily range): BP systolic 87–124; BP diastolic 35–83; PULSE 53–92; RESP 14–28
[2017-07-31] MEDS: ACETAMINOPHEN 325 MG TAB PO PRN ×2 (05:16→10:25)
[2017-07-31 05:29] LABS: BASOPHIL # 0.1 10^3/ul (0.0-0.1); BASOPHILS % 0.8 % (0.0-2.0); EOSINOPHILS # 0.1 10^3/ul (0.0-0.5); EOSINOPHILS % 1.1 % (0.0-7.0); HEMOGLOBIN 12.6 g/dl (12.0-16.0); LYMPHOCYTES # 1.1 10^3/ul (0.8-2.9); LYMPHOCYTES % 13.1 % (15.0-51.0); MEAN CORPUSCULAR HEMOGLOBIN 30.2 pg (29.0-33.0); MEAN CORPUSCULAR HGB CONC 33.2 g/dl (32.0-37.0); MEAN CORPUSCULAR VOLUME 91.1 fl (82.0-101.0); MEAN PLATELET VOLUME 9.9 fl (7.4-10.4); MONOCYTE # 1.2 10^3/ul (0.3-0.9); MONOCYTES % 14.3 % (0.0-11.0); NEUTROPHIL # 5.8 10^3/ul (1.6-7.5); NEUTROPHILS % 70.1 % (39.0-77.0); PLATELET COUNT 233 10^3/UL (140-415); RED BLOOD COUNT 4.17 10^6/ul (4.20-5.40); RED CELL DISTRIBUTION WIDTH 13.9 % (11.5-14.5); WHITE BLOOD COUNT 8.3 10^3/ul (4.8-10.8)
[2017-07-31] MEDS: METOPROLOL 50 MG TAB PO SCH ×3 (06:00→22:18)
[2017-07-31 06:10] LABS: CALCIUM 8.6 mg/dl (8.4-10.2); CREATININE 0.76 mg/dl (0.44-1.00); POTASSIUM 4.2 mmol/L (3.5-5.1)
[2017-07-31 06:17] LABS: CK-MB 3.21 ng/ml (0.0-2.4)
[2017-07-31 06:20] LABS: TROPONIN-I 9.95 ng/ml (0.00-0.12)
[2017-07-31] MEDS: FERROUS SULFATE (EC) 325 MG TAB PO SCH (09:00)
--- NOTE | 2017-07-31 09:16 | PN ---
Date/Time of Note Date/Time of Note DATE: 07/31/17 TIME: 09:13 Assessment/Plan Lines/Catheters IV Catheter Type (from Nrsg): Saline Lock Short in Place (from Nrsg): Yes Subjective 24 Hr Interval Summary The patient is postop day #3 following a multilevel decompressive laminectomy from L2-L5. Is resting comfortably in bed. He has no chest pain this morning. Neurovascular structures are intact distally. Morning lab work is unremarkable with exception of an elevated troponin, however it is improved compared to yesterday. She has not had a bowel movement since surgery. I have discussed her status with Dr. Huddleston. She was started on aspirin yesterday, and I told Dr. Funez that if necessary she could be anticoagulated today. When I spoke with him yesterday, he did not feel she was capable of participating in gait training with physical therapy. I will ask physical therapy to mobilize her as tolerated as soon as she is cleared by cardiology to do so. Exam/Review of Systems Vital Signs Vitals Vital Signs Date Time Temp Pulse Resp B/P Pulse Ox O2 Delivery O2 Flow Rate FiO2 07/31/17 04:00 98.4 56 16 92/52 94 07/30/17 22:11 2.0 07/30/17 18:00 Nasal Cannula 07/29/17 20:58 21 Intake and Output 07/30/17 07/30/17 07/31/17 15:00 23:00 07:00 Intake Total 760 ml 200 ml 400 ml Output Total 1470 ml 980 ml 500 ml Balance -710 ml -780 ml -100 ml Results Result Diagram: 07/31/17 0457 07/31/17 0457 RICK BECKMAN MD Jul 31, 2017 09:16
[2017-07-31] MEDS ORDERED: MAGNESIUM HYDROXIDE 30ML CUP PO ONE (09:30)
[2017-07-31] MEDS ORDERED: LACTULOSE 30ML CUP PO ONE (09:30)
--- NOTE | 2017-07-31 09:50 | PN ---
Date/Time of Note Date/Time of Note DATE: 07/31/17 TIME: 09:37 Assessment/Plan VTE Prophylaxis VTE Prophylaxis Intervention: contraindicated Lines/Catheters [facility] Saline Lock Urinary Cath still in place: Yes Reason Cath still needed: urinary retention Assessment/Plan Problems: (1) S/P lumbar laminectomy Status: Acute Comment: She is postoperatively. Physical therapy has been ordered and is coming in to see the patient now. We will get her corset and get her up and moving. (2) Acute coronary syndrome Status: Acute Comment: She developed acute coronary syndrome postoperatively. Her troponins are trending down. Cardiology has agreed with anticoagulation using aspirin in place of Plavix which orthopedic surgery has also agreed to. Get her started on that. She will undergo cardiac cath as per cardiology (3) History of pulmonary embolism Status: Chronic Comment: This is a historical problem the patient has been on long-term anticoagulation with Coumadin prior to this. We will address this shortly but were anticoagulating her for the acute coronary syndrome now (4) Obstipation Status: Acute Comment: We will give her laxatives but not by enema or ID route. She will do better if we can get her up to the bedside commode. (5) Hyperlipidemia Status: Chronic Comment: She is on full dose statin therapy now Qualifiers: Hyperlipidemia type: pure hypercholesterolemia Qualified Code: E78.00 - Pure hypercholesterolemia (6) Osteoarthritis Status: Chronic Comment: Postop Qualifiers: Osteoarthritis location: spine Spinal region: lumbar Spinal osteoarthritis complication: with radiculopathy Qualified Code: M47.26 - Osteoarthritis of spine with radiculopathy, lumbar region (7) Gout Status: Chronic Comment: Continue observation-inactive Qualifiers: Gout site: unspecified site Gout etiology: unspecified cause Presence of tophus: without tophus (8) Hemorrhoids Status: Chronic Comment: noted Qualifiers: Hemorrhoid type: first degree Qualified Code: K64.0 - Grade I hemorrhoids (9) Migraine syndrome Status: Chronic Comment: Quiescent Subjective 24 Hr Interval Summary Free Text/Dictation Patient reports she is doing well. No complaints of chest pain shortness of breath nausea or vomiting. She does however complain of uncomfortable constipation. Constitutional: no complaints Respiratory: no complaints Cardiovascular: no complaints Gastrointestinal: constipation Exam/Review of Systems Vital Signs Vitals Vital Signs Date Time Temp Pulse Resp B/P Pulse Ox O2 Delivery O2 Flow Rate FiO2 07/31/17 04:00 98.4 56 16 92/52 94 07/30/17 22:11 2.0 07/30/17 18:00 Nasal Cannula 07/29/17 20:58 21 Intake and Output 07/30/17 07/30/17 07/31/17 15:00 23:00 07:00 Intake Total 760 ml 200 ml 400 ml Output Total 1470 ml 980 ml 500 ml Balance -710 ml -780 ml -100 ml Exam Constitutional: alert, oriented Neck: non-tender, supple Respiratory: clear to auscultation, normal air movement Cardiovascular: nl pulses, regular rate and rhythm Gastrointestinal: nl liver, spleen, non-tender, soft Results Result Diagram: 07/31/17 0457 07/31/177 Results 24 hrs Laboratory Tests Test 07/31/17 04:56 07/31/17 04:57 Creatine Kinase 82 # Creatine Kinase Index 3.9 Creatinine Kinase MB (Mass) 3.21 H Troponin I 9.950 *H White Blood Count 8.3 Red Blood Count 4.17 L Hemoglobin 12.6 Hematocrit 38.0 Mean Corpuscular Volume 91.1 Mean Corpuscular Hemoglobin 30.2 Mean Corpuscular Hemoglobin Concent 33.2 Red Cell Distribution Width 13.9 Platelet Count 233 Mean Platelet Volume 9.9 Neutrophils % 70.1 Lymphocytes % 13.1 L Monocytes % 14.3 H Eosinophils % 1.1 Basophils % 0.8 Nucleated Red Blood Cells % 0.0 Neutrophils # 5.8 Lymphocytes # 1.1 Monocytes # 1.2 H Eosinophils # 0.1 Basophils # 0.1 Nucleated Red Blood Cells # 0.0 Sodium Level 133 L Potassium Level 4.2 Chloride Level 99 Carbon Dioxide Level 29 Anion Gap 9 Blood Urea Nitrogen 15 Creatinine 0.76 Glucose Level 98 # Calcium Level 8.6 Medications Medications Current Medications Acetaminophen/ Hydrocodone Bitart ([employer] (5/325)) 1 tab Q4H PRN PO PAIN LEVEL 1 -5 Last administered on 07/30/17t 21:32; Admin Dose 1 TAB; Start 07/28/17 at 14: 00 Acetaminophen/ Hydrocodone Bitart ([employer] (5/325)) 2 tab Q4H PRN PO PAIN LEVEL 6 -10; Start 07/28/17 at 14:00 Zolpidem Tartrate (Ambien) 5 mg HS PRN PO INSOMNIA; Start 07/28/17 at 14:00 Prochlorperazine (Compazine) 10 mg Q4H PRN PO NAUSEA AND/OR VOMITING Last administered on 07/29/17 05:54; Admin Dose 10 MG; Start 07/28/17 at 14:00 Trimethobenzamide HCl (Tigan) 200 mg Q4H PRN IM NAUSEA AND/OR VOMITING; Start 07/28/17 at 14:00 Ondansetron HCl (Zofran Inj) 4 mg Q6H PRN IV NAUSEA AND/OR VOMITING Last administered on 07/29/17 14:08; Admin Dose 4 MG; Start 07/28/17 at 14:00 Al Hydrox/Mg Hydrox/Simethicone (Mag-Al Plus) 15 ml Q4H PRN PO CONSTIPATION; Start 07/28/17 at 14:00 Docusate Sodium (Colace) 100 mg BID PO Last administered on 07/30/17 21:32; Admin Dose 100 MG; Start 07/29/17 at 09:00 Acetaminophen (Tylenol Tab) 650 mg Q4H PRN PO TEMP GREATER THAN 101F OR FUNEZ Last administered on 07/31/17 05:16; Admin Dose 650 MG; Start 07/28/17 at 14:00 Ascorbic Acid (Vitamin C) 1,000 mg BID PO Last administered on 07/30/17 21:32 ; Admin Dose 1,000 MG; Start 07/29/17 at 09:00 Ferrous Sulfate (Ferrous Sulfate (Ec)) 325 mg TID PO Last administered on 21:32; Admin Dose 325 MG; Start 07/29/17 at 09:00; Status Future hold Ranitidine HCl (Zantac) 150 mg BID PO Last administered on 07/30/17 21:33; Admin Dose 150 MG; Start 07/28/17 at 21:00 Diazepam (Valium) 5 mg Q4H PRN PO MUSCLE SPASMS; Start 07/28/17 at 14:00 Diazepam (Valium) 5 mg Q4H PRN IM MUSCLE SPASMS Last administered on 07/29/17 02:55; Admin Dose 5 MG; Start 07/28/17 at 14:00 Phenol (Cepastat Lozenge) 1 lozenge PRN PRN MT SORE THROAT; Start 07/28/17 at 14:00 Bethanechol Chloride (Urecholine) 25 mg PRN PRN PO UNABLE TO VOID; Start at 14:00 Diphenhydramine HCl (Benadryl) 50 mg Q6H PRN PO PRURITUS; Start 07/28/17 at 14: 00 Naloxone HCl (Narcan) 0.2 mg Q2M PRN IV RR 8 BREATHS/MIN OR LESS; Start at 14:00 Cholecalciferol (Vitamin D) 2,000 unit DAILY PO Last administered on 07/30/17 10:05; Admin Dose 2,000 UNIT; Start 07/29/17 at 09:00 Oxycodone HCl (Roxicodone) 10 mg TID PRN PO PAIN Last administered on 22:02; Admin Dose 10 MG; Start 07/28/17 at 16:30 Potassium Chloride (Klor-Con 20) 20 meq BID PO Last administered on 07/30/17 21:32; Admin Dose 20 MEQ; Start 07/29/17 at 09:00 Atorvastatin Calcium (Lipitor) 80 mg HS PO Last administered on 07/30/17 21:32 ; Admin Dose 80 MG; Start 07/30/17 at 21:00 Clonidine (Catapres) 0.1 mg Q4H PRN PO ELEVATED SYSTOLIC BP Last administered on 07/30/17 06:17; Admin Dose 0.1 MG; Start 07/30/17 at 02:30 Aspirin (Halfprin) 81 mg DAILY PO ; Start 07/31/17 at 09:00 Metoprolol Tartrate (Lopressor) 50 mg Q8 PO Last administered on 07/30/17 17: 36; Admin Dose 50 MG; Start 07/30/17 at 16:00 Lisinopril (Zestril) 5 mg BID PO Last administered on 07/30/17 13:11; Admin Dose 5 MG; Start 07/30/17 at 12:30 Clopidogrel Bisulfate (plaVIX) 75 mg DAILY PO ; Start 07/31/17 at 09:00 SHIRLEY NAYAK MD Jul 31, 2017 09:50
[2017-07-31] MEDS: CHOLECALCIFEROL 1,000 UNIT TAB PO SCH (10:25)
[2017-07-31] MEDS: POTASSIUM CHLORIDE (SR) 20 MEQ TAB PO SCH ×2 (10:26→20:51)
[2017-07-31] MEDS: RANITIDINE 150 MG TAB PO SCH ×2 (10:26→20:51)
[2017-07-31] MEDS: DOCUSATE SODIUM 100 MG CAP PO SCH ×2 (10:26→20:52)
[2017-07-31] MEDS: LISINOPRIL 5 MG TAB PO SCH ×2 (10:26→20:51)
[2017-07-31] MEDS: CLOPIDOGREL 75 MG TAB PO SCH (10:26)
[2017-07-31] MEDS: ASPIRIN (EC) 81 MG TAB PO SCH (10:26)
[2017-07-31] MEDS: ASCORBIC ACID 500 MG TAB PO SCH ×2 (10:26→20:51)
[2017-07-31] MEDS ORDERED: HEPARIN 5,000 UNIT/0.5 ML VIAL SC SCH (11:00)
--- NOTE | 2017-07-31 12:00 | PN ---
Date/Time of Note Date/Time of Note DATE: 07/31/17 TIME: 11:57 Assessment/Plan VTE Prophylaxis VTE Prophylaxis Intervention: SCD's Lines/Catheters IV [facility] Type (from [facility] Saline Lock Urinary Cath still in place: Yes Reason Cath still needed: urinary retention Assessment/Plan Assessment/Plan Non-ST elevation myocardial infarction Status post laminectomy Preserved ejection fraction Coronary artery disease History of DVT and PE, was on Coumadin Hypertension -Extensive discussion had with patient's primary financial systems director Dr. Honorio Lucero, her orthopedic surgeon Dr. Moscoso an coastal/harbor defense officer Dr. Young by dr. chip Lucero, patient with history of cardiac catheterization approximately 4 years ago which demonstrated a 60% mid LAD lesion that was not flow-limiting with FFR evaluation. Patient underwent nuclear cardiac perfusion study last week with no evidence of any significant abnormalities. Furthermore , patient with history of PE and DVT approximately 4-5 years ago and Coumadin has been stopped prior to procedure. -In discussion with the orthopedic surgeon by dr saunders twice yesterday given patient is near 48 hours post surgery, surgery is okay with initiation of aspirin today. Based on her response and surgical evaluation in the morning, could start Plavix tomorrow as well as full dose heparin. Of note, troponins are currently trending down. -I spoke with dr moscoso twice, marcelino leal and RN - plavix has been stared with asa, i will rx heparin drip as ok'd by ortho and will plan for a cath in 48 hours > stop heparin midnirt wednesday for possible cath wednesday Subjective 24 Hr Interval Summary Free Text/Dictation The patient is chest pain free Exam/Review of Systems Vital Signs Vitals Vital Signs Date Time Temp Pulse Resp B/P Pulse Ox O2 Delivery O2 Flow Rate FiO2 07/31/17 10:00 92 28 117/49 94 Nasal Cannula 2.0 07/31/17 08:00 97.9 07/29/17 20:58 21 Intake and Output 07/30/17 07/30/17 07/31/17 15:00 23:00 07:00 Intake Total 760 ml 200 ml 400 ml Output Total 1470 ml 980 ml 500 ml Balance -710 ml -780 ml -100 ml Results Result Diagram: 07/31/17 0457 07/31/17 0457 Results 24 hrs Laboratory Tests Test 07/31/17 04:56 07/31/17 04:57 Creatine Kinase 82 # Creatine Kinase Index 3.9 Creatinine Kinase MB (Mass) 3.21 H Troponin I 9.950 *H White Blood Count 8.3 Red Blood Count 4.17 L Hemoglobin 12.6 Hematocrit 38.0 Mean Corpuscular Volume 91.1 Mean Corpuscular Hemoglobin 30.2 Mean Corpuscular Hemoglobin Concent 33.2 Red Cell Distribution Width 13.9 Platelet Count 233 Mean Platelet Volume 9.9 Neutrophils % 70.1 Lymphocytes % 13.1 L Monocytes % 14.3 H Eosinophils % 1.1 Basophils % 0.8 Nucleated Red Blood Cells % 0.0 Neutrophils # 5.8 Lymphocytes # 1.1 Monocytes # 1.2 H Eosinophils # 0.1 Basophils # 0.1 Nucleated Red Blood Cells # 0.0 Sodium Level 133 L Potassium Level 4.2 Chloride Level 99 Carbon Dioxide Level 29 Anion Gap 9 Blood Urea Nitrogen 15 Creatinine 0.76 Glucose Level 98 # Calcium Level 8.6 Medications Medications Current Medications Acetaminophen/ Hydrocodone Bitart ([place] (5/325)) 1 tab Q4H PRN PO PAIN LEVEL 1 -5 Last administered on 07/30/17 21:32; Admin Dose 1 TAB; Start 07/28/17 at 14: 00 Acetaminophen/ Hydrocodone Bitart ([place] (5/325)) 2 tab Q4H PRN PO PAIN LEVEL 6 -10; Start 07/28/17 at 14:00 Zolpidem Tartrate (Ambien) 5 mg HS PRN PO INSOMNIA; Start 07/28/17 at 14:00 Prochlorperazine (Compazine) 10 mg Q4H PRN PO NAUSEA AND/OR VOMITING Last administered on 07/29/17 05:54; Admin Dose 10 MG; Start 07/28/17 at 14:00 Trimethobenzamide HCl (Tigan) 200 mg Q4H PRN IM NAUSEA AND/OR VOMITING; Start 07/28/17 at 14:00 Ondansetron HCl (Zofran Inj) 4 mg Q6H PRN IV NAUSEA AND/OR VOMITING Last administered on 07/29/17 14:08; Admin Dose 4 MG; Start 07/28/17 at 14:00 Al Hydrox/Mg Hydrox/Simethicone (Mag-Al Plus) 15 ml Q4H PRN PO CONSTIPATION; Start 07/28/17 at 14:00 Docusate Sodium (Colace) 100 mg BID PO Last administered on 07/31/17 10:26; Admin Dose 100 MG; Start 07/29/17 at 09:00 Acetaminophen (Tylenol Tab) 650 mg Q4H PRN PO TEMP GREATER THAN 101F OR FUNEZ Last administered on 07/31/17 10:25; Admin Dose 650 MG; Start 07/28/17 at 14:00 Ascorbic Acid (Vitamin C) 1,000 mg BID PO Last administered on 07/31/17 10:26 ; Admin Dose 1,000 MG; Start 07/29/17 at 09:00 Ferrous Sulfate (Ferrous Sulfate (Ec)) 325 mg TID PO Last administered on 21:32; Admin Dose 325 MG; Start 07/29/17 at 09:00; Status Future hold Ranitidine HCl (Zantac) 150 mg BID PO Last administered on 07/31/17 10:26; Admin Dose 150 MG; Start 07/28/17 at 21:00 Diazepam (Valium) 5 mg Q4H PRN PO MUSCLE SPASMS; Start 07/28/17 at 14:00 Diazepam (Valium) 5 mg Q4H PRN IM MUSCLE SPASMS Last administered on 07/29/17 02:55; Admin Dose 5 MG; Start 07/28/17 at 14:00 Phenol (Cepastat Lozenge) 1 lozenge PRN PRN MT SORE THROAT; Start 07/28/17 at 14:00 Bethanechol Chloride (Urecholine) 25 mg PRN PRN PO UNABLE TO VOID; Start at 14:00 Diphenhydramine HCl (Benadryl) 50 mg Q6H PRN PO PRURITUS; Start 07/28/17 at 14: 00 Naloxone HCl (Narcan) 0.2 mg Q2M PRN IV RR 8 BREATHS/MIN OR LESS; Start at 14:00 Cholecalciferol (Vitamin D) 2,000 unit DAILY PO Last administered on 07/31/17 10:25; Admin Dose 2,000 UNIT; Start 07/29/17 at 09:00 Oxycodone HCl (Roxicodone) 10 mg TID PRN PO PAIN Last administered on 22:02; Admin Dose 10 MG; Start 07/28/17 at 16:30 Potassium Chloride (Klor-Con 20) 20 meq BID PO Last administered on 07/31/17 10:26; Admin Dose 20 MEQ; Start 07/29/17 at 09:00 Atorvastatin Calcium (Lipitor) 80 mg HS PO Last administered on 07/30/17 21:32 ; Admin Dose 80 MG; Start 07/30/17 at 21:00 Clonidine (Catapres) 0.1 mg Q4H PRN PO ELEVATED SYSTOLIC BP Last administered on 07/30/17 06:17; Admin Dose 0.1 MG; Start 07/30/17 at 02:30 Aspirin (Halfprin) 81 mg DAILY PO Last administered on 07/31/17 10:26; Admin Dose 81 MG; Start 07/31/17 at 09:00 Metoprolol Tartrate (Lopressor) 50 mg Q8 PO Last administered on 07/30/17 17: 36; Admin Dose 50 MG; Start 07/30/17 at 16:00 Lisinopril (Zestril) 5 mg BID PO Last administered on 07/31/17 10:26; Admin Dose 5 MG; Start 07/30/17 at 12:30 Clopidogrel Bisulfate (plaVIX) 75 mg DAILY PO Last administered on 07/31/17 10 :26; Admin Dose 75 MG; Start 07/31/17 at 09:00 Heparin Sodium (Porcine) (Heparin (5000 Units/0.5 ml)) 5,000 unit BID SC ; Start 07/31/17 at 11:00 EVA DO MD Jul 31, 2017 12:00
[2017-07-31] MEDS ORDERED: HEPARIN 1000 UNITS/ML 10 ML INJ IV PRN (12:30)
[2017-07-31 13:16] LABS: BASOPHIL # 0.1 10^3/ul (0.0-0.1); BASOPHILS % 0.9 % (0.0-2.0); EOSINOPHILS # 0.1 10^3/ul (0.0-0.5); EOSINOPHILS % 0.9 % (0.0-7.0); HEMATOCRIT 39.2 % (37.0-47.0); HEMOGLOBIN 13.3 g/dl (12.0-16.0); LYMPHOCYTES # 0.8 10^3/ul (0.8-2.9); LYMPHOCYTES % 9.8 % (15.0-51.0); MEAN CORPUSCULAR HEMOGLOBIN 30.5 pg (29.0-33.0); MEAN CORPUSCULAR HGB CONC 33.9 g/dl (32.0-37.0); MEAN CORPUSCULAR VOLUME 89.9 fl (82.0-101.0); MEAN PLATELET VOLUME 9.5 fl (7.4-10.4); MONOCYTES % 12.3 % (0.0-11.0); NEUTROPHIL # 6.2 10^3/ul (1.6-7.5); NEUTROPHILS % 75.4 % (39.0-77.0); PLATELET COUNT 278 10^3/UL (140-415); RED BLOOD COUNT 4.36 10^6/ul (4.20-5.40); RED CELL DISTRIBUTION WIDTH 13.7 % (11.5-14.5); WHITE BLOOD COUNT 8.2 10^3/ul (4.8-10.8)
[2017-07-31 13:55] LABS: INR 1.02; PROTIME 13.4 Sec (12.2-14.2)
[2017-07-31] MEDS: HEPARIN 25000 UNITS/250 ML 250 ML IV SCH (15:23)
[2017-07-31] MEDS: ATORVASTATIN 80 MG TAB PO SCH (20:51)
[2017-08-01] VITALS (25 sets, daily range): BP systolic 90–141; BP diastolic 46–88; PULSE 56–84; RESP 15–26
[2017-08-01] MEDS: METOPROLOL 50 MG TAB PO SCH ×3 (05:49→22:00)
[2017-08-01 06:41] LABS: CK-MB 1.25 ng/ml (0.0-2.4)
[2017-08-01 06:44] LABS: TROPONIN-I 6.37 ng/ml (0.00-0.12)
--- NOTE | 2017-08-01 07:38 | PN ---
Date/Time of Note Date/Time of Note DATE: 08/01/17 TIME: 07:36 Assessment/Plan VTE Prophylaxis VTE Prophylaxis Intervention: heparin Lines/Catheters IV [facility] Type (from [email or web address] Peripheral IV Urinary Cath still in place: No Assessment/Plan Problems: (1) Acute coronary syndrome Status: Acute Comment: Patient is resolving her troponins slowly. She is on heparin now in preparation for cardiac cath tomorrow. Note with the heparinization not worried about pulmonary emboli. No evidence of untoward bleeding postop at this time. (2) Hyperlipidemia Status: Chronic Comment: On full dose statin therapy Qualifiers: Hyperlipidemia type: pure hypercholesterolemia Qualified Code: E78.00 - Pure hypercholesterolemia (3) Obstipation Status: Resolved Comment: Resolved (4) S/P lumbar laminectomy Onset Date: ~ 07/28/2017 Status: Acute Comment: Recuperating and has been seen by physical therapy. Subjective 24 Hr Interval Summary Free Text/Dictation She is sleeping in bed easily aroused and fully oriented no complaints. Constitutional: no complaints ENT: no complaints Respiratory: no complaints Cardiovascular: no complaints (Specifically denies chest pain palpitations orthopnea or PND) Gastrointestinal: no complaints (Constipation resolved) Genitourinary: no complaints Exam/Review of Systems Vital Signs Vitals Vital Signs Date Time Temp Pulse Resp B/P Pulse Ox O2 Delivery O2 Flow Rate FiO2 08/01/17 06:00 71 26 118/50 95 Room Air 08/01/17 04:00 98.4 07/31/17 17:00 2.0 07/29/17 20:58 21 Intake and Output 07/31/17 07/31/17 08/01/17 15:00 23:00 07:00 Intake Total 400 ml 492 ml 77 ml Output Total 300 ml 425 ml 490 ml Balance 100 ml 67 ml -413 ml Exam Constitutional: alert, oriented Neck: non-tender, supple Respiratory: clear to auscultation, normal air movement Cardiovascular: nl pulses, regular rate and rhythm Results Result Diagram: 07/31/17 1306 07/31/17 0457 Results 24 hrs Laboratory Tests Test 07/31/17 13:04 07/31/17 13:06 07/31/17 22:13 08/01/17 05:20 Prothrombin Time 13.4 Prothrombin Time Ratio 1.0 INR International Normalized Ratio 1.02 Activated Partial Thromboplast Time 29.0 26.9 28.2 White Blood Count 8.2 Red Blood Count 4.36 Hemoglobin 13.3 Hematocrit 39.2 Mean Corpuscular Volume 89.9 Mean Corpuscular Hemoglobin 30.5 Mean Corpuscular Hemoglobin Concent 33.9 Red Cell Distribution Width 13.7 Platelet Count 278 Mean Platelet Volume 9.5 Neutrophils % 75.4 Lymphocytes % 9.8 L Monocytes % 12.3 H Eosinophils % 0.9 Basophils % 0.9 Nucleated Red Blood Cells % 0.0 Neutrophils # 6.2 Lymphocytes # 0.8 Monocytes # 1.0 H Eosinophils # 0.1 Basophils # 0.1 Nucleated Red Blood Cells # 0.0 Creatine Kinase 66 Creatine Kinase Index 1.9 Creatinine Kinase MB (Mass) 1.25 Troponin I 6.370 *H Medications Medications Current Medications Acetaminophen/ Hydrocodone Bitart ([place] (5/325)) 1 tab Q4H PRN PO PAIN LEVEL 1 -5 Last administered on 07/30/17 21:32; Admin Dose 1 TAB; Start 07/28/17 at 14: 00 Acetaminophen/ Hydrocodone Bitart ([place] (5/325)) 2 tab Q4H PRN PO PAIN LEVEL 6 -10; Start 07/28/17 at 14:00 Zolpidem Tartrate (Ambien) 5 mg HS PRN PO INSOMNIA; Start 07/28/17 at 14:00 Prochlorperazine (Compazine) 10 mg Q4H PRN PO NAUSEA AND/OR VOMITING Last administered on 07/29/17 05:54; Admin Dose 10 MG; Start 07/28/17 at 14:00 Trimethobenzamide HCl (Tigan) 200 mg Q4H PRN IM NAUSEA AND/OR VOMITING; Start 07/28/17 at 14:00 Ondansetron HCl (Zofran Inj) 4 mg Q6H PRN IV NAUSEA AND/OR VOMITING Last administered on 07/29/17 14:08; Admin Dose 4 MG; Start 07/28/17 at 14:00 Al Hydrox/Mg Hydrox/Simethicone (Mag-Al Plus) 15 ml Q4H PRN PO CONSTIPATION; Start 07/28/17 at 14:00 Docusate Sodium (Colace) 100 mg BID PO Last administered on 07/31/17 10:26; Admin Dose 100 MG; Start 07/29/17 at 09:00 Acetaminophen (Tylenol Tab) 650 mg Q4H PRN PO TEMP GREATER THAN 101F OR FUNEZ Last administered on 07/31/17 10:25; Admin Dose 650 MG; Start 07/28/17 at 14:00 Ascorbic Acid (Vitamin C) 1,000 mg BID PO Last administered on 07/31/17 20:51 ; Admin Dose 1,000 MG; Start 07/29/17 at 09:00 Ferrous Sulfate (Ferrous Sulfate (Ec)) 325 mg TID PO Last administered on 21:32; Admin Dose 325 MG; Start 07/29/17 at 09:00; Status Future hold Ranitidine HCl (Zantac) 150 mg BID PO Last administered on 07/31/17 20:51; Admin Dose 150 MG; Start 07/28/17 at 21:00 Diazepam (Valium) 5 mg Q4H PRN PO MUSCLE SPASMS; Start 07/28/17 at 14:00 Diazepam (Valium) 5 mg Q4H PRN IM MUSCLE SPASMS Last administered on 07/29/17 02:55; Admin Dose 5 MG; Start 07/28/17 at 14:00 Phenol (Cepastat Lozenge) 1 lozenge PRN PRN MT SORE THROAT; Start 07/28/17 at 14:00 Bethanechol Chloride (Urecholine) 25 mg PRN PRN PO UNABLE TO VOID; Start at 14:00 Diphenhydramine HCl (Benadryl) 50 mg Q6H PRN PO PRURITUS; Start 07/28/17 at 14: 00 Naloxone HCl (Narcan) 0.2 mg Q2M PRN IV RR 8 BREATHS/MIN OR LESS; Start at 14:00 Cholecalciferol (Vitamin D) 2,000 unit DAILY PO Last administered on 07/31/17 10:25; Admin Dose 2,000 UNIT; Start 07/29/17 at 09:00 Oxycodone HCl (Roxicodone) 10 mg TID PRN PO PAIN Last administered on 22:02; Admin Dose 10 MG; Start 07/28/17 at 16:30 Potassium Chloride (Klor-Con 20) 20 meq BID PO Last administered on 07/31/17 20:51; Admin Dose 20 MEQ; Start 07/29/17 at 09:00 Atorvastatin Calcium (Lipitor) 80 mg HS PO Last administered on 07/31/17 20:51 ; Admin Dose 80 MG; Start 07/30/17 at 21:00 Clonidine (Catapres) 0.1 mg Q4H PRN PO ELEVATED SYSTOLIC BP Last administered on 07/30/17 06:17; Admin Dose 0.1 MG; Start 07/30/17 at 02:30 Aspirin (Halfprin) 81 mg DAILY PO Last administered on 07/31/17 10:26; Admin Dose 81 MG; Start 07/31/17 at 09:00 Metoprolol Tartrate (Lopressor) 50 mg Q8 PO Last administered on 08/01/17 05: 49; Admin Dose 50 MG; Start 07/30/17 at 16:00 Lisinopril (Zestril) 5 mg BID PO Last administered on 07/31/17 20:51; Admin Dose 5 MG; Start 07/30/17 at 12:30 Clopidogrel Bisulfate (plaVIX) 75 mg DAILY PO Last administered on 07/31/17 10 :26; Admin Dose 75 MG; Start 07/31/17 at 09:00 SHIRLEY NAYAK MD Aug 01, 2017 07:38
[2017-08-01] MEDS: ASCORBIC ACID 500 MG TAB PO SCH ×2 (08:30→21:08)
[2017-08-01] MEDS: RANITIDINE 150 MG TAB PO SCH ×2 (08:30→21:08)
[2017-08-01] MEDS: CLOPIDOGREL 75 MG TAB PO SCH (08:30)
[2017-08-01] MEDS: DOCUSATE SODIUM 100 MG CAP PO SCH ×2 (08:30→21:00)
[2017-08-01] MEDS: CHOLECALCIFEROL 1,000 UNIT TAB PO SCH (08:30)
[2017-08-01] MEDS: ASPIRIN (EC) 81 MG TAB PO SCH (08:30)
[2017-08-01] MEDS: POTASSIUM CHLORIDE (SR) 20 MEQ TAB PO SCH ×2 (08:31→21:08)
[2017-08-01] MEDS: LISINOPRIL 5 MG TAB PO SCH ×2 (09:25→21:10)
[2017-08-01] MEDS: HYDROCODONE/APAP (5/325) TAB PO PRN ×2 (09:25→18:36)
--- NOTE | 2017-08-01 11:10 | PN ---
Date/Time of Note Date/Time of Note DATE: 08/01/17 TIME: 11:08 Assessment/Plan Lines/Catheters IV Catheter Type (from Nrs): Peripheral IV Short in Place (from Nrsg): No Subjective 24 Hr Interval Summary Patient is postop day #4 following a multilevel decompressive laminectomy from L2-L5. She is resting comfortably in bed. Neurovascular structures are intact distally. A.m. lab work is unremarkable. She moved her bowels yesterday. Her dressing is clean and dry. She has not yet been ambulated with physical therapy per cardiology. I spoke with campus interviews intern yesterday, and a cardiac cath is scheduled for tomorrow. Exam/Review of Systems Vital Signs Vitals Vital Signs Date Time Temp Pulse Resp B/P Pulse Ox O2 Delivery O2 Flow Rate FiO2 08/01/17 11:00 64 18 106/54 93 Room Air 08/01/17 08:00 98.5 07/31/17 17:00 2.0 07/29/17 20:58 21 Intake and Output 07/31/17 07/31/17 08/01/17 15:00 23:00 07:00 Intake Total 400 ml 492 ml 77 ml Output Total 300 ml 425 ml 490 ml Balance 100 ml 67 ml -413 ml Results Result Diagram: 07/31/17 1306 07/31/17 0457 RICK BECKMAN MD Aug 01, 2017 11:10
--- NOTE | 2017-08-01 14:17 | PN ---
DATE: 08/01/2017 SUBJECTIVE DATA: Patient is currently comfortable. No chest pain or shortness of breath. ASSESSMENT:: Non ST-elevation [place]. Status post laminectomy on this admission with preserved ejection fraction. She does have a history of DVT and PE, on Coumadin. Patient with known coronary disease. She developed elevated troponin post surgery, most recently 9.99. Currently with clearance by Orthopedics, she has been started on heparin, aspirin and Plavix. OBJECTIVE DATA: No distress. Temperature 98, pulse 67, blood pressure 106/54. No jugular venous distention. Lungs clear. Heart reveals a regular rate and rhythm. Abdomen soft. PLAN: At this time, we will plan for cardiac angiogram tomorrow. Procedure was explained to the patient in detail. Her most recent troponins are trending down. We will continue heparin, aspirin, Plavix until after the catheterization. Dictated By: Gregory Veronica MD /leann/kim /Document#: [id number]
[2017-08-01] MEDS: ATORVASTATIN 80 MG TAB PO SCH (21:07)
[2017-08-01] MEDS: HEPARIN 25000 UNITS/250 ML 250 ML IV SCH (21:45)
[2017-08-02] VITALS (20 sets, daily range): BP systolic 99–143; BP diastolic 46–109; PULSE 56–100; RESP 11–20
[2017-08-02] MEDS: METOPROLOL 50 MG TAB PO SCH ×3 (05:43→20:38)
[2017-08-02] MEDS: HYDROCODONE/APAP (5/325) TAB PO PRN ×3 (05:43→22:01)
[2017-08-02 05:53] LABS: BASOPHIL # 0.1 10^3/ul (0.0-0.1); BASOPHILS % 1.1 % (0.0-2.0); EOSINOPHILS # 0.2 10^3/ul (0.0-0.5); EOSINOPHILS % 3.1 % (0.0-7.0); HEMATOCRIT 37.7 % (37.0-47.0); HEMOGLOBIN 12.4 g/dl (12.0-16.0); LYMPHOCYTES # 0.9 10^3/ul (0.8-2.9); LYMPHOCYTES % 15.2 % (15.0-51.0); MEAN CORPUSCULAR HEMOGLOBIN 30.5 pg (29.0-33.0); MEAN CORPUSCULAR HGB CONC 32.9 g/dl (32.0-37.0); MEAN CORPUSCULAR VOLUME 92.6 fl (82.0-101.0); MEAN PLATELET VOLUME 9.6 fl (7.4-10.4); MONOCYTE # 0.7 10^3/ul (0.3-0.9); MONOCYTES % 11.8 % (0.0-11.0); NEUTROPHIL # 4.2 10^3/ul (1.6-7.5); NEUTROPHILS % 67.7 % (39.0-77.0); PLATELET COUNT 320 10^3/UL (140-415); RED BLOOD COUNT 4.07 10^6/ul (4.20-5.40); RED CELL DISTRIBUTION WIDTH 13.8 % (11.5-14.5); WHITE BLOOD COUNT 6.2 10^3/ul (4.8-10.8)
[2017-08-02 06:25] LABS: INR 1.01; PROTIME 13.3 Sec (12.2-14.2)
[2017-08-02 06:26] LABS: PARTIAL THROMBOPLASTIN TIME 55.1 Sec (25.0-35.0)
[2017-08-02 06:37] LABS: CK-MB 0.67 ng/ml (0.0-2.4)
[2017-08-02 06:39] LABS: CALCIUM 9.3 mg/dl (8.4-10.2); CREATININE 0.77 mg/dl (0.44-1.00); POTASSIUM 4.3 mmol/L (3.5-5.1)
[2017-08-02 06:40] LABS: TROPONIN-I 4.57 ng/ml (0.00-0.12)
[2017-08-02] MEDS: LISINOPRIL 5 MG TAB PO SCH ×2 (08:05→20:39)
[2017-08-02] MEDS: ASPIRIN (EC) 81 MG TAB PO SCH (08:11)
[2017-08-02] MEDS: CLOPIDOGREL 75 MG TAB PO SCH (08:11)
[2017-08-02] MEDS: DOCUSATE SODIUM 100 MG CAP PO SCH ×2 (08:14→20:39)
[2017-08-02] MEDS: ASCORBIC ACID 500 MG TAB PO SCH ×2 (09:00→20:38)
[2017-08-02] MEDS: POTASSIUM CHLORIDE (SR) 20 MEQ TAB PO SCH ×2 (09:00→20:39)
[2017-08-02] MEDS: RANITIDINE 150 MG TAB PO SCH ×2 (09:00→20:40)
[2017-08-02] MEDS: CHOLECALCIFEROL 1,000 UNIT TAB PO SCH (09:00)
--- NOTE | 2017-08-02 09:38 | PN ---
DATE: 08/02/2017 The patient is seen on 08/02/2017 at approximately 7:40 a.m. SUBJECTIVE DATA: Patient is awakened from sleep, is quite alert and answers questions appropriately. No major complaints other than some minor back pain. No chest pain in particular. OBJECTIVE DATA: VITAL SIGNS: The patient's temperature is 97.4, pulse is 71, respirations 18, blood pressure is 130/49, O2 sat 94 percent on room air. HEENT: Unremarkable. LUNGS: Clear. HEART: Regular rhythm. ABDOMEN: Soft. Bowel sounds present. IMPRESSION: 1. Status post acute myocardial infarction. 2. Status post lumbar spine surgery. 3. Hypertension. 4. Past cerebrovascular accident and pulmonary embolus. LABORATORY AND DIAGNOSTIC DATA: Review of laboratory and other data reveals the following: Patient's CBC reveals a normal white count, normal hemoglobin and hematocrit. Chemistries reveal normal electrolytes, BUN, creatinine, glucose, calcium. Patient's cardiac component of CPK is within normal limits at this particular point in time. However, her troponin is still elevated at 4.5. Her clotting studies reveal normal ProTime and INR with PTT being somewhat prolonged, compatible with her usage of heparin. DISCUSSION: The patient is scheduled to have an angiogram today, possible stenting if necessary. Condition is much improved. Patient has been getting out of bed and at least walking inside the room. Await results of the angiogram and cardiology input in terms of activity level. Rest of management per Dr. Garcia. Thank you again, Dr. Garcia, for allowing us to participate in the care of this patient. Dictated By: Ritesh Young MD /leann/jese /Document#: [id number]
--- NOTE | 2017-08-02 11:24 | PN ---
Date/Time of Note Date/Time of Note DATE: 08/02/17 TIME: 11:03 Assessment/Plan Lines/Catheters IV Catheter Type (from Nrs): Peripheral IV Short in Place (from Nrsg): No Subjective 24 Hr Interval Summary The patient is post-op day number five following a multi-level decompressive laminectomy complicated by a post-op myocardial infarction. She is reating comfortably in bed. Neurovascular structures are intact distally. AM labwork is normal except for an elevated PTT from her heparinization. She is scheduled for a cardiac caheterization later . I will mobilize her with physical therapy as soon as she's cleared by cardiology to do so. Exam/Review of Systems Vital Signs Vitals Vital Signs Date Time Temp Pulse Resp B/P Pulse Ox O2 Delivery O2 Flow Rate FiO2 08/02/17 10:00 65 18 133/65 93 Room Air 08/02/17 08:00 98.0 07/31/17 17:00 2.0 07/29/17 20:58 21 Intake and Output 08/01/17 08/01/17 08/02/17 15:00 23:00 07:00 Intake Total 366 ml 576.5 ml 54.0 ml Output Total 750 ml 400 ml 700 ml Balance -384 ml 176.5 ml -646.0 ml Results Result Diagram: 08/02/17 0530 08/02/17 0530 RICK BECKMAN MD Aug 02, 2017 11:09
[2017-08-02] MEDS ORDERED: FENTAnyl 50 MCG/ML VIAL ONE ×2 (11:55→12:52)
[2017-08-02] MEDS ORDERED: LIDOCAINE 1% (MDV) 20 ML INJ ONE (11:55)
[2017-08-02] MEDS ORDERED: MIDAZOLAM 1 MG/ML 2 ML INJ ONE ×2 (11:55→12:52)
[2017-08-02] MEDS ORDERED: HEPARIN 1000 UNITS/ML 10 ML INJ ONE (11:55)
[2017-08-02] MEDS ORDERED: HEPARIN 1000 UNITS/NS (A-LINE) 1,000 ML ONE (11:55)
[2017-08-02] MEDS ORDERED: NITROGLYCERIN (IC) 100 MCG/ML INJ ONE (11:56)
[2017-08-02] MEDS ORDERED: VERAPAMIL 5 MG INJ ONE (11:56)
[2017-08-02] MEDS ORDERED: SOD CHLORIDE 0.9% 1,000 ML IV SCH (13:07)
--- NOTE | 2017-08-02 13:42 | OPR ---
Date/Time of Note Date/Time of Note DATE: 08/02/17 TIME: 13:33 Operative Report Free Text/Dictation Anesthesiologist is marked as required. No anesthesiologist present. Procedure Date: Aug 02, 2017 Preoperative Diagnosis Myocardial infarction Postoperative Diagnosis Coronary artery disease Operation/Procedure Performed Left heart catheterization Right and left coronary angiogram Interpretation and supervision of right left coronary angiogram Left ventricular pressure measurements Wiring and dottering of occluded diagonal Conscious sedation Right radial artery approach Surgeon see signature line Train Dispatcher None Anesthesia Type: other (Conscious sedation) Anesthesiologist: Torres Funez DO Estimated Blood Loss: minimal Transfusion none Specimen None Grafts/Implants none Complications none Pt Condition Post Procedure: stable Indications This is an 82-year-old female status post orthopedic surgery with postoperative operative elevated troponin concerning for myocardial infarction Procedure Description Findings Hemodynamics LV pressure 159/-1 with EDP of 29 Aortic pressure on pullback 156/64 Fluoroscopy Coronary anatomy Left main is a medium caliber vessel and short with no significant disease LAD is a medium caliber vessel with a mid 50-60% stenosis (no significant change to cardiac catheterization performed at [facility] in 2013 in this region), the second diagonal appears to be occluded right after the ostium and is a small vessel Circumflex is a medium caliber vessel and is dominant with a proximal 10% stenosis and mid 20% stenosis RCA is a small to medium caliber vessel and nondominant with distal 10% diffuse stenosis Description of procedure Patient brought to the Equipment Man after informed consent. Patient was prepped and draped as per protocol. Right radial access was obtained and a 5/6 Citizen [place] sheath was placed in the right radial artery. 5 [place] JL 3.5 diagnostic catheter was used to engage the left main and angiogram was performed. A 5 [place] JR4 diagnostic catheter was used to engage the RCA and antrum was performed, left ventricle was entered and pressure measurements were obtained as well as pullback. Patient with moderate stenosis in the mid to distal LAD with no significant change in this region compared to cardiac catheterization [facility]. There was evidence of a subacute occlusion of the second diagonal. Heparin was used for anticoagulation, a 6 [place] XB LAD 3.5 guide catheter was used to engage left main. With moderate difficulty, the area of occlusion was transverse with a run-through wire. With wiring, the vessel appeared to be a small vessel. Furthermore, there was evidence of left to left collaterals feeding the distal diagonal which demonstrated a small vessel. Given patient with down trending troponins, normal ejection fraction and chest pain-free, no further intervention was performed. Furthermore patient with recent nuclear cardiac perfusion study done which did not demonstrate ischemia in the LAD territory. All catheters and wires removed, patient remained chest pain free throughout the procedure. The findings were discussed with patient's daughter over the phone, orthopedic surgeon and patient's primary electric car operator Dr. Honorio Lucero. Torres Funez DO Aug 02, 2017 13:42
--- NOTE | 2017-08-02 13:45 | CONS ---
Date/Time of Note Date/Time of Note DATE: 08/02/17 TIME: 13:43 Assessment/Plan Assessment/Plan Additional Assessment/Plan Non-ST elevation myocardial infarction Coronary artery disease Status post laminectomy Preserved ejection fraction Coronary artery disease History of DVT and PE, was on Coumadin Hypertension -Patient status post cardiac catheterization which demonstrated no significant change in large caliber vessels compared to cardiac catheterization performed in 2012 at [facility]. There was evidence of occlusion of a small diagonal branch. Given the small caliber vessel, would pursue medical management given patient chest pain-free, downtrending troponins and normal ejection fraction. If no contraindication, continue Plavix and aspirin therapy , high-dose statin therapy, beta-chris as heart rate and blood pressure permits. MEGAN inhibitor as blood pressure and renal function permits. Consultation Date/Type/Reason Admit Date/Time Jul 28, 2017 at 07:10 Type of Consultation: cv 24 HR Interval Summary Free Text/Dictation Denies chest pain, shortness of breath or palpitations. Exam/Review of Systems Vital Signs Vitals Vital Signs Date Time Temp Pulse Resp B/P Pulse Ox O2 Delivery O2 Flow Rate FiO2 08/02/17 10:00 65 18 133/65 93 Room Air 08/02/17 08:00 98.0 07/31/17 17:00 2.0 07/29/17 20:58 21 Intake and Output 08/01/17 08/01/17 08/02/17 15:00 23:00 07:00 Intake Total 366 ml 576.5 ml 54.0 ml Output Total 750 ml 400 ml 700 ml Balance -384 ml 176.5 ml -646.0 ml Exam No apparent distress Constitutional: alert, oriented Head: normocephalic Respiratory: other (Coarse breath sounds bilaterally, no wheezing) Cardiovascular: other (s1 S2 heard), regular rate and rhythm Gastrointestinal: bowel sounds, non-tender, soft Extremities: other (Trace edema) Results Result Diagram: 08/02/1752908/02/17529 Results 24 hrs Laboratory Tests Test 08/01/17 14:42 08/01/17 19:54 08/02/17 02:08 08/02/17 05:30 Activated Partial Thromboplast Time 28.0 77.8 *H > 180.0 *H 55.1 H White Blood Count 6.2 # Red Blood Count 4.07 L Hemoglobin 12.4 Hematocrit 37.7 Mean Corpuscular Volume 92.6 Mean Corpuscular Hemoglobin 30.5 Mean Corpuscular Hemoglobin Concent 32.9 Red Cell Distribution Width 13.8 Platelet Count 320 Mean Platelet Volume 9.6 Neutrophils % 67.7 Lymphocytes % 15.2 Monocytes % 11.8 H Eosinophils % 3.1 Basophils % 1.1 Nucleated Red Blood Cells % 0.0 Neutrophils # 4.2 Lymphocytes # 0.9 Monocytes # 0.7 Eosinophils # 0.2 Basophils # 0.1 Nucleated Red Blood Cells # 0.0 Prothrombin Time 13.3 Prothrombin Time Ratio 1.0 INR International Normalized Ratio 1.01 Sodium Level 136 Potassium Level 4.3 Chloride Level 101 Carbon Dioxide Level 32 H Anion Gap 7 L Blood Urea Nitrogen 15 Creatinine 0.77 Glucose Level 106 Calcium Level 9.3 Creatine Kinase 38 Creatine Kinase Index 1.8 Creatinine Kinase MB (Mass) 0.67 Troponin I 4.570 *H Medications Medications Current Medications Acetaminophen/ Hydrocodone Bitart ([place] (5/325)) 1 tab Q4H PRN PO PAIN LEVEL 1 -5 Last administered on 08/02/17 05:43; Admin Dose 1 TAB; Start 07/28/17 at 14: 00 Acetaminophen/ Hydrocodone Bitart ([place] (5/325)) 2 tab Q4H PRN PO PAIN LEVEL 6 -10; Start 07/28/17 at 14:00 Zolpidem Tartrate (Ambien) 5 mg HS PRN PO INSOMNIA; Start 07/28/17 at 14:00 Prochlorperazine (Compazine) 10 mg Q4H PRN PO NAUSEA AND/OR VOMITING Last administered on 07/29/17 05:54; Admin Dose 10 MG; Start 07/28/17 at 14:00 Trimethobenzamide HCl (Tigan) 200 mg Q4H PRN IM NAUSEA AND/OR VOMITING; Start 07/28/17 at 14:00 Ondansetron HCl (Zofran Inj) 4 mg Q6H PRN IV NAUSEA AND/OR VOMITING Last administered on 07/29/17 14:08; Admin Dose 4 MG; Start 07/28/17 at 14:00 Al Hydrox/Mg Hydrox/Simethicone (Mag-Al Plus) 15 ml Q4H PRN PO CONSTIPATION; Start 07/28/17 at 14:00 Docusate Sodium (Colace) 100 mg BID PO Last administered on 08/01/17 08:30; Admin Dose 100 MG; Start 07/29/17 at 09:00 Acetaminophen (Tylenol Tab) 650 mg Q4H PRN PO TEMP GREATER THAN 101F OR FUNEZ Last administered on 07/31/17 10:25; Admin Dose 650 MG; Start 07/28/17 at 14:00 Ascorbic Acid (Vitamin C) 1,000 mg BID PO Last administered on 08/01/17 21:08 ; Admin Dose 1,000 MG; Start 07/29/17 at 09:00 Ferrous Sulfate (Ferrous Sulfate (Ec)) 325 mg TID PO Last administered on 21:32; Admin Dose 325 MG; Start 07/29/17 at 09:00; Status Future hold Ranitidine HCl (Zantac) 150 mg BID PO Last administered on 08/01/17 21:08; Admin Dose 150 MG; Start 07/28/17 at 21:00 Diazepam (Valium) 5 mg Q4H PRN PO MUSCLE SPASMS; Start 07/28/17 at 14:00 Diazepam (Valium) 5 mg Q4H PRN IM MUSCLE SPASMS Last administered on 07/29/17 02:55; Admin Dose 5 MG; Start 07/28/17 at 14:00 Phenol (Cepastat Lozenge) 1 lozenge PRN PRN MT SORE THROAT; Start 07/28/17 at 14:00 Bethanechol Chloride (Urecholine) 25 mg PRN PRN PO UNABLE TO VOID; Start at 14:00 Diphenhydramine HCl (Benadryl) 50 mg Q6H PRN PO PRURITUS; Start 07/28/17 at 14: 00 Naloxone HCl (Narcan) 0.2 mg Q2M PRN IV RR 8 BREATHS/MIN OR LESS; Start at 14:00 Cholecalciferol (Vitamin D) 2,000 unit DAILY PO Last administered on 08/01/17 08:30; Admin Dose 2,000 UNIT; Start 07/29/17 at 09:00 Oxycodone HCl (Roxicodone) 10 mg TID PRN PO PAIN Last administered on 22:02; Admin Dose 10 MG; Start 07/28/17 at 16:30 Potassium Chloride (Klor-Con 20) 20 meq BID PO Last administered on 08/01/17 21:08; Admin Dose 20 MEQ; Start 07/29/17 at 09:00 Atorvastatin Calcium (Lipitor) 80 mg HS PO Last administered on 08/01/17 21:07 ; Admin Dose 80 MG; Start 07/30/17 at 21:00 Clonidine (Catapres) 0.1 mg Q4H PRN PO ELEVATED SYSTOLIC BP Last administered on 07/30/17 06:17; Admin Dose 0.1 MG; Start 07/30/17 at 02:30 Aspirin (Halfprin) 81 mg DAILY PO Last administered on 08/02/17 08:11; Admin Dose 81 MG; Start 07/31/17 at 09:00 Metoprolol Tartrate (Lopressor) 50 mg Q8 PO Last administered on 08/02/17 05: 43; Admin Dose 50 MG; Start 07/30/17 at 16:00 Lisinopril (Zestril) 5 mg BID PO Last administered on 08/01/17 21:10; Admin Dose 5 MG; Start 07/30/17 at 12:30 Clopidogrel Bisulfate 75 mg 75 mg DAILY PO Last administered on 08/02/17 08:11 ; Admin Dose 75 MG; Start 07/31/17 at 09:00 Sodium Chloride (NS) 1,000 ml @ 75 mls/hr [id number] IV ; Start 08/02/17 at 13:07 ; Stop 08/02/17 at 18:06 Torres Funez DO Aug 02, 2017 13:45
[2017-08-02] MEDS: ATORVASTATIN 80 MG TAB PO SCH (20:38)
[2017-08-03] VITALS (19 sets, daily range): BP systolic 98–180; BP diastolic 44–100; PULSE 58–80; RESP 13–22
[2017-08-03] MEDS: HYDROCODONE/APAP (5/325) TAB PO PRN ×3 (02:16→21:44)
[2017-08-03 05:34] LABS: BASOPHIL # 0.1 10^3/ul (0.0-0.1); EOSINOPHILS # 0.2 10^3/ul (0.0-0.5); EOSINOPHILS % 3.6 % (0.0-7.0); HEMATOCRIT 35.2 % (37.0-47.0); HEMOGLOBIN 11.4 g/dl (12.0-16.0); LYMPHOCYTES % 15.4 % (15.0-51.0); MEAN CORPUSCULAR HEMOGLOBIN 30.5 pg (29.0-33.0); MEAN CORPUSCULAR HGB CONC 32.4 g/dl (32.0-37.0); MEAN CORPUSCULAR VOLUME 94.1 fl (82.0-101.0); MEAN PLATELET VOLUME 9.6 fl (7.4-10.4); MONOCYTE # 0.8 10^3/ul (0.3-0.9); MONOCYTES % 12.4 % (0.0-11.0); NEUTROPHIL # 4.5 10^3/ul (1.6-7.5); NEUTROPHILS % 66.7 % (39.0-77.0); PLATELET COUNT 322 10^3/UL (140-415); RED BLOOD COUNT 3.74 10^6/ul (4.20-5.40); WHITE BLOOD COUNT 6.8 10^3/ul (4.8-10.8)
[2017-08-03 05:55] LABS: CREATININE 0.75 mg/dl (0.44-1.00); POTASSIUM 4.3 mmol/L (3.5-5.1)
[2017-08-03] MEDS: METOPROLOL 50 MG TAB PO SCH ×3 (06:19→21:45)
--- NOTE | 2017-08-03 06:54 | PN ---
Date/Time of Note Date/Time of Note DATE: 08/03/17 TIME: 06:53 Assessment/Plan Lines/Catheters IV Catheter Type (from Nrsg): Peripheral IV Short in Place (from Nrsg): No Subjective 24 Hr Interval Summary Patient is postop day #6 following a multilevel decompressive laminectomy complicated by a postoperative myocardial infarction. She is resting comfortably in bed. Neurovascular structures are intact distally. A.m. labs are unremarkable. I have ordered physical therapy for walker ambulation training, and a transfer to [facility] pending approval from Dr. Funez. Exam/Review of Systems Vital Signs Vitals Vital Signs Date Time Temp Pulse Resp B/P Pulse Ox O2 Delivery O2 Flow Rate FiO2 08/03/17 04:00 78 08/03/17 04:00 98.0 15 98/50 93 Room Air 07/31/17 17:00 2.0 Intake and Output 08/02/17 08/02/17 08/03/17 15:00 23:00 07:00 Intake Total 240 ml 1000 ml Output Total 400 ml 450 ml 0 ml Balance -400 ml -210 ml 1000 ml Results Result Diagram: 08/03/17 0437 08/03/17 0437 RICK BECKMAN MD Aug 03, 2017 06:54
[2017-08-03] MEDS: CHOLECALCIFEROL 1,000 UNIT TAB PO SCH (09:00)
[2017-08-03] MEDS: ASCORBIC ACID 500 MG TAB PO SCH ×2 (09:00→21:45)
[2017-08-03] MEDS: POTASSIUM CHLORIDE (SR) 20 MEQ TAB PO SCH ×2 (09:00→21:44)
[2017-08-03] MEDS: DOCUSATE SODIUM 100 MG CAP PO SCH ×2 (09:00→21:00)
[2017-08-03] MEDS: CLOPIDOGREL 75 MG TAB PO SCH (09:57)
[2017-08-03] MEDS: ASPIRIN (EC) 81 MG TAB PO SCH (09:57)
[2017-08-03] MEDS: LISINOPRIL 5 MG TAB PO SCH ×2 (09:57→21:44)
[2017-08-03] MEDS: RANITIDINE 150 MG TAB PO SCH ×2 (09:57→21:00)
--- NOTE | 2017-08-03 14:44 | CONS ---
Date/Time of Note Date/Time of Note DATE: 08/03/17 TIME: 14:37 Assessment/Plan Assessment/Plan Problems: (1) Status post lumbar laminectomy Status: Acute Comment: Continue current PT/OT regimen and advance once cleared by cardiology. Further post op management per Dr. Garcia. (2) Acute coronary syndrome Status: Acute Comment: Non ST elevation myocardial infarct. Status post angiogram without large caliber vessel disease. Small vessel occlusion not requiring stenting. Will be managed medically. Appreciate Dr. Funez involvement. Consultation Date/Type/Reason Admit Date/Time Jul 28, 2017 at 07:10 Initial Consult Date Type of Consultation: IM 24 HR Interval Summary Free Text/Dictation Patient anxious to go home. Chest pain free. Minimal back pain. Up and ambulating Exam/Review of Systems Vital Signs Vitals Vital Signs Date Time Temp Pulse Resp B/P Pulse Ox O2 Delivery O2 Flow Rate FiO2 08/03/17 12:00 65 08/03/17 04:00 98.0 15 98/50 93 Room Air 07/31/17 17:00 2.0 Intake and Output 08/02/17 08/02/17 08/03/17 15:00 23:00 07:00 Intake Total 240 ml 1000 ml Output Total 400 ml 450 ml 0 ml Balance -400 ml -210 ml 1000 ml Exam Constitutional: alert, oriented, well developed Neck: supple Respiratory: clear to auscultation Cardiovascular: regular rate and rhythm Gastrointestinal: soft Extremities: normal pulses Neurological: other (Moves all extremities) Results Labs reviewed Result Diagram: 08/03/17 0437 08/03/17 0437 Results 24 hrs Laboratory Tests Test 08/03/17 04:37 White Blood Count 6.8 Red Blood Count 3.74 L Hemoglobin 11.4 L Hematocrit 35.2 L Mean Corpuscular Volume 94.1 Mean Corpuscular Hemoglobin 30.5 Mean Corpuscular Hemoglobin Concent 32.4 Red Cell Distribution Width 14.0 Platelet Count 322 Mean Platelet Volume 9.6 Neutrophils % 66.7 Lymphocytes % 15.4 Monocytes % 12.4 H Eosinophils % 3.6 Basophils % 1.0 Nucleated Red Blood Cells % 0.0 Neutrophils # 4.5 Lymphocytes # 1.0 Monocytes # 0.8 Eosinophils # 0.2 Basophils # 0.1 Nucleated Red Blood Cells # 0.0 Sodium Level 137 Potassium Level 4.3 Chloride Level 104 Carbon Dioxide Level 30 Anion Gap 7 L Blood Urea Nitrogen 17 Creatinine 0.75 Glucose Level 112 Calcium Level 9.0 Magnesium Level 1.6 L Medications Medications Current Medications Acetaminophen/ Hydrocodone Bitart ([place] (5/325)) 1 tab Q4H PRN PO PAIN LEVEL 1 -5 Last administered on 08/03/17 09:57; Admin Dose 1 TAB; Start 07/28/17 at 14: 00 Acetaminophen/ Hydrocodone Bitart ([place] (5/325)) 2 tab Q4H PRN PO PAIN LEVEL 6 -10; Start 07/28/17 at 14:00 Zolpidem Tartrate (Ambien) 5 mg HS PRN PO INSOMNIA; Start 07/28/17 at 14:00 Prochlorperazine (Compazine) 10 mg Q4H PRN PO NAUSEA AND/OR VOMITING Last administered on 07/29/17 05:54; Admin Dose 10 MG; Start 07/28/17 at 14:00 Trimethobenzamide HCl (Tigan) 200 mg Q4H PRN IM NAUSEA AND/OR VOMITING; Start 07/28/17 at 14:00 Ondansetron HCl (Zofran Inj) 4 mg Q6H PRN IV NAUSEA AND/OR VOMITING Last administered on 07/29/17 14:08; Admin Dose 4 MG; Start 07/28/17 at 14:00 Al Hydrox/Mg Hydrox/Simethicone (Mag-Al Plus) 15 ml Q4H PRN PO CONSTIPATION; Start 07/28/17 at 14:00 Docusate Sodium (Colace) 100 mg BID PO Last administered on 08/02/17 20:39; Admin Dose 100 MG; Start 07/29/17 at 09:00 Acetaminophen (Tylenol Tab) 650 mg Q4H PRN PO TEMP GREATER THAN 101F OR FUNEZ Last administered on 07/31/17 10:25; Admin Dose 650 MG; Start 07/28/17 at 14:00 Ascorbic Acid (Vitamin C) 1,000 mg BID PO Last administered on 08/02/17 20:38 ; Admin Dose 1,000 MG; Start 07/29/17 at 09:00 Ferrous Sulfate (Ferrous Sulfate (Ec)) 325 mg TID PO Last administered on 21:32; Admin Dose 325 MG; Start 07/29/17 at 09:00; Status Future hold Ranitidine HCl (Zantac) 150 mg BID PO Last administered on 08/03/17 09:57; Admin Dose 150 MG; Start 07/28/17 at 21:00 Diazepam (Valium) 5 mg Q4H PRN PO MUSCLE SPASMS; Start 07/28/17 at 14:00 Diazepam (Valium) 5 mg Q4H PRN IM MUSCLE SPASMS Last administered on 07/29/17 02:55; Admin Dose 5 MG; Start 07/28/17 at 14:00 Phenol (Cepastat Lozenge) 1 lozenge PRN PRN MT SORE THROAT; Start 07/28/17 at 14:00 Bethanechol Chloride (Urecholine) 25 mg PRN PRN PO UNABLE TO VOID; Start at 14:00 Diphenhydramine HCl (Benadryl) 50 mg Q6H PRN PO PRURITUS; Start 07/28/17 at 14: 00 Naloxone HCl (Narcan) 0.2 mg Q2M PRN IV RR 8 BREATHS/MIN OR LESS; Start at 14:00 Cholecalciferol (Vitamin D) 2,000 unit DAILY PO Last administered on 08/01/17 08:30; Admin Dose 2,000 UNIT; Start 07/29/17 at 09:00 Oxycodone HCl (Roxicodone) 10 mg TID PRN PO PAIN Last administered on 22:02; Admin Dose 10 MG; Start 07/28/17 at 16:30 Potassium Chloride (Klor-Con 20) 20 meq BID PO Last administered on 08/02/17 20:39; Admin Dose 20 MEQ; Start 07/29/17 at 09:00 Atorvastatin Calcium (Lipitor) 80 mg HS PO Last administered on 08/02/17 20:38 ; Admin Dose 80 MG; Start 07/30/17 at 21:00 Clonidine (Catapres) 0.1 mg Q4H PRN PO ELEVATED SYSTOLIC BP Last administered on 07/30/17 06:17; Admin Dose 0.1 MG; Start 07/30/17 at 02:30 Aspirin (Halfprin) 81 mg DAILY PO Last administered on 08/03/17 09:57; Admin Dose 81 MG; Start 07/31/17 at 09:00 Metoprolol Tartrate (Lopressor) 50 mg Q8 PO Last administered on 08/03/17 06: 19; Admin Dose 50 MG; Start 07/30/17 at 16:00 Lisinopril (Zestril) 5 mg BID PO Last administered on 08/03/17 09:57; Admin Dose 5 MG; Start 07/30/17 at 12:30 Clopidogrel Bisulfate (plaVIX) 75 mg DAILY PO Last administered on 08/03/17 09 :57; Admin Dose 75 MG; Start 07/31/17 at 09:00 JOHN PAUL MITCHELL MD Aug 03, 2017 14:44
--- NOTE | 2017-08-03 16:31 | CONS ---
Date/Time of Note Date/Time of Note DATE: 08/03/17 TIME: 16:29 Assessment/Plan Assessment/Plan Additional Assessment/Plan Non-ST elevation myocardial infarction Coronary artery disease Status post laminectomy Preserved ejection fraction Coronary artery disease History of DVT and PE, was on Coumadin Hypertension -Patient continues to deny chest pain. Getting out of bed with no symptoms. As discussed with staff, okay to continue physical therapy but of course watching for any symptoms of chest discomfort or shortness of breath. Okay to transfer out of ICU to telemetry. Patient is not to be restarted on anticoagulation, would stop aspirin and only continue Plavix. If anticoagulation is not planned to be restarted, would continue dual antiplatelet therapy with aspirin and Plavix therapy. Consultation Date/Type/Reason Admit Date/Time Jul 28, 2017 at 07:10 Type of Consultation: cv 24 HR Interval Summary Free Text/Dictation Denies chest pain, short of breath or dizziness Exam/Review of Systems Vital Signs Vitals Vital Signs Date Time Temp Pulse Resp B/P Pulse Ox O2 Delivery O2 Flow Rate FiO2 08/03/17 14:00 73 22 132/55 96 Room Air 08/03/17 12:00 98.1 07/31/17 17:00 2.0 Intake and Output 08/02/17 08/02/17 08/03/17 15:00 23:00 07:00 Intake Total 240 ml 1000 ml Output Total 400 ml 450 ml 0 ml Balance -400 ml -210 ml 1000 ml Exam No apparent distress Constitutional: alert, oriented Head: normocephalic Respiratory: other (Coarse breath sounds mildly, wheezing) Cardiovascular: other (S1-S2 heard), regular rate and rhythm Gastrointestinal: bowel sounds, non-tender, soft Extremities: edema Results Result Diagram: 08/03/17 0437 08/03/17 043 Results 24 hrs Laboratory Tests Test 08/03/17 04:37 White Blood Count 6.8 Red Blood Count 3.74 L Hemoglobin 11.4 L Hematocrit 35.2 L Mean Corpuscular Volume 94.1 Mean Corpuscular Hemoglobin 30.5 Mean Corpuscular Hemoglobin Concent 32.4 Red Cell Distribution Width 14.0 Platelet Count 322 Mean Platelet Volume 9.6 Neutrophils % 66.7 Lymphocytes % 15.4 Monocytes % 12.4 H Eosinophils % 3.6 Basophils % 1.0 Nucleated Red Blood Cells % 0.0 Neutrophils # 4.5 Lymphocytes # 1.0 Monocytes # 0.8 Eosinophils # 0.2 Basophils # 0.1 Nucleated Red Blood Cells # 0.0 Sodium Level 137 Potassium Level 4.3 Chloride Level 104 Carbon Dioxide Level 30 Anion Gap 7 L Blood Urea Nitrogen 17 Creatinine 0.75 Glucose Level 112 Calcium Level 9.0 Magnesium Level 1.6 L Medications Medications Current Medications Acetaminophen/ Hydrocodone Bitart ([place] (5/325)) 1 tab Q4H PRN PO PAIN LEVEL 1 -5 Last administered on 08/03/17 09:57; Admin Dose 1 TAB; Start 07/28/17 at 14: 00 Acetaminophen/ Hydrocodone Bitart ([place] (5/325)) 2 tab Q4H PRN PO PAIN LEVEL 6 -10; Start 07/28/17 at 14:00 Zolpidem Tartrate (Ambien) 5 mg HS PRN PO INSOMNIA; Start 07/28/17 at 14:00 Prochlorperazine (Compazine) 10 mg Q4H PRN PO NAUSEA AND/OR VOMITING Last administered on 07/29/17 05:54; Admin Dose 10 MG; Start 07/28/17 at 14:00 Trimethobenzamide HCl (Tigan) 200 mg Q4H PRN IM NAUSEA AND/OR VOMITING; Start 07/28/17 at 14:00 Ondansetron HCl (Zofran Inj) 4 mg Q6H PRN IV NAUSEA AND/OR VOMITING Last administered on 07/29/17 14:08; Admin Dose 4 MG; Start 07/28/17 at 14:00 Al Hydrox/Mg Hydrox/Simethicone (Mag-Al Plus) 15 ml Q4H PRN PO CONSTIPATION; Start 07/28/17 at 14:00 Docusate Sodium (Colace) 100 mg BID PO Last administered on 08/02/17 20:39; Admin Dose 100 MG; Start 07/29/17 at 09:00 Acetaminophen (Tylenol Tab) 650 mg Q4H PRN PO TEMP GREATER THAN 101F OR FUNEZ Last administered on 07/31/17 10:25; Admin Dose 650 MG; Start 07/28/17 at 14:00 Ascorbic Acid (Vitamin C) 1,000 mg BID PO Last administered on 08/02/17 20:38 ; Admin Dose 1,000 MG; Start 07/29/17 at 09:00 Ferrous Sulfate (Ferrous Sulfate (Ec)) 325 mg TID PO Last administered on 21:32; Admin Dose 325 MG; Start 07/29/17 at 09:00; Status Future hold Ranitidine HCl (Zantac) 150 mg BID PO Last administered on 08/03/17 09:57; Admin Dose 150 MG; Start 07/28/17 at 21:00 Diazepam (Valium) 5 mg Q4H PRN PO MUSCLE SPASMS; Start 07/28/17 at 14:00 Diazepam (Valium) 5 mg Q4H PRN IM MUSCLE SPASMS Last administered on 07/29/17 02:55; Admin Dose 5 MG; Start 07/28/17 at 14:00 Phenol (Cepastat Lozenge) 1 lozenge PRN PRN MT SORE THROAT; Start 07/28/17 at 14:00 Bethanechol Chloride (Urecholine) 25 mg PRN PRN PO UNABLE TO VOID; Start at 14:00 Diphenhydramine HCl (Benadryl) 50 mg Q6H PRN PO PRURITUS; Start 07/28/17 at 14: 00 Naloxone HCl (Narcan) 0.2 mg Q2M PRN IV RR 8 BREATHS/MIN OR LESS; Start at 14:00 Cholecalciferol (Vitamin D) 2,000 unit DAILY PO Last administered on 08/01/17 08:30; Admin Dose 2,000 UNIT; Start 07/29/17 at 09:00 Oxycodone HCl (Roxicodone) 10 mg TID PRN PO PAIN Last administered on 22:02; Admin Dose 10 MG; Start 07/28/17 at 16:30 Potassium Chloride (Klor-Con 20) 20 meq BID PO Last administered on 08/02/17 20:39; Admin Dose 20 MEQ; Start 07/29/17 at 09:00 Atorvastatin Calcium (Lipitor) 80 mg HS PO Last administered on 08/02/17 20:38 ; Admin Dose 80 MG; Start 07/30/17 at 21:00 Clonidine (Catapres) 0.1 mg Q4H PRN PO ELEVATED SYSTOLIC BP Last administered on 07/30/17 06:17; Admin Dose 0.1 MG; Start 07/30/17 at 02:30 Aspirin (Halfprin) 81 mg DAILY PO Last administered on 08/03/17 09:57; Admin Dose 81 MG; Start 07/31/17 at 09:00 Metoprolol Tartrate (Lopressor) 50 mg Q8 PO Last administered on 08/03/17 06: 19; Admin Dose 50 MG; Start 07/30/17 at 16:00 Lisinopril (Zestril) 5 mg BID PO Last administered on 08/03/17 09:57; Admin Dose 5 MG; Start 07/30/17 at 12:30 Clopidogrel Bisulfate (plaVIX) 75 mg DAILY PO Last administered on 08/03/17 09 :57; Admin Dose 75 MG; Start 07/31/17 at 09:00 Torres Funez DO Aug 03, 2017 16:31
[2017-08-03] MEDS ORDERED: MAGNESIUM SULFATE 3 GM in SOD CHLORIDE 0.9% 100 ML IVPB ONE (17:30)
[2017-08-03] MEDS: ATORVASTATIN 80 MG TAB PO SCH (21:44)
[2017-08-04] VITALS (10 sets, daily range): BP systolic 116–184; BP diastolic 55–76; PULSE 62–70; RESP 16–18
[2017-08-04] MEDS: METOPROLOL 50 MG TAB PO SCH ×2 (05:54→14:33)
--- NOTE | 2017-08-04 06:39 | PN ---
Date/Time of Note Date/Time of Note DATE: 08/04/17 TIME: 06:38 Assessment/Plan Lines/Catheters IV Catheter Type (from Nrsg): Saline Lock Short in Place (from Nrsg): No Subjective 24 Hr Interval Summary Afebrile. Neurovascular structures intact. Physical therapy never saw pt yesterday. Plan: discharge home when cleared by cardiology and PT. Followup arrangements and discharge precautions/instructions discussed. Exam/Review of Systems Vital Signs Vitals Vital Signs Date Time Temp Pulse Resp B/P Pulse Ox O2 Delivery O2 Flow Rate FiO2 08/04/17 04:31 97.6 70 16 116/55 96 08/03/17 18:00 Room Air 07/31/17 17:00 2.0 Results Result Diagram: 08/03/17 0437 08/03/17 0437 RICK BECKMAN MD Aug 04, 2017 06:39
[2017-08-04] MEDS: ASPIRIN (EC) 81 MG TAB PO SCH (08:59)
[2017-08-04] MEDS: CLOPIDOGREL 75 MG TAB PO SCH (08:59)
[2017-08-04] MEDS: CHOLECALCIFEROL 1,000 UNIT TAB PO SCH (08:59)
[2017-08-04] MEDS: POTASSIUM CHLORIDE (SR) 20 MEQ TAB PO SCH (08:59)
[2017-08-04] MEDS: ASCORBIC ACID 500 MG TAB PO SCH (09:00)
[2017-08-04] MEDS: RANITIDINE 150 MG TAB PO SCH (09:00)
[2017-08-04] MEDS: LISINOPRIL 5 MG TAB PO SCH (09:01)
[2017-08-04] MEDS: DOCUSATE SODIUM 100 MG CAP PO SCH (09:14)
--- NOTE | 2017-08-04 11:46 | CONS ---
Date/Time of Note Date/Time of Note DATE: 08/04/17 TIME: 11:44 Assessment/Plan Assessment/Plan Additional Assessment/Plan Non-ST elevation myocardial infarction Coronary artery disease Status post laminectomy Preserved ejection fraction Coronary artery disease History of DVT and PE, was on Coumadin Hypertension -Patient continues to deny chest pain. Getting out of bed with no symptoms. As discussed with staff, okay to continue physical therapy but of course watching for any symptoms of chest discomfort or shortness of breath. Okay to transfer out of ICU to telemetry. If patient to be restarted on anticoagulation , would stop aspirin and only continue Plavix. If anticoagulation is not planned to be restarted, would continue dual antiplatelet therapy with aspirin and Plavix therapy. Okay to discharge from a cardiology standpoint. Consultation Date/Type/Reason Admit Date/Time Jul 28, 2017 at 07:10 Type of Consultation: cv 24 HR Interval Summary Free Text/Dictation Continues to deny chest pain, shortness of breath or palpitations Exam/Review of Systems Vital Signs Vitals Vital Signs Date Time Temp Pulse Resp B/P Pulse Ox O2 Delivery O2 Flow Rate FiO2 08/04/17 11:18 97.5 74 18 123/58 97 08/03/17 18:00 Room Air 07/31/17 17:00 2.0 Intake and Output 08/03/17 08/03/17 08/04/17 15:00 23:00 07:00 Intake Total 800 ml Balance 800 ml Exam No apparent distress Constitutional: alert, oriented Head: normocephalic Respiratory: other (Coarse breath sounds bilaterally, no wheezing) Cardiovascular: other (S1-S2 heard), regular rate and rhythm Gastrointestinal: bowel sounds, non-tender, soft Extremities: edema Results Result Diagram: 08/03/17 0437 08/03/17 0437 Medications Medications Current Medications Acetaminophen/ Hydrocodone Bitart (Kopperl (5/325)) 1 tab Q4H PRN PO PAIN LEVEL 1 -5 Last administered on 08/03/17t 21:44; Admin Dose 1 TAB; Start 07/28/17 at 14: 00 Acetaminophen/ Hydrocodone Bitart (Kopperl (5/325)) 2 tab Q4H PRN PO PAIN LEVEL 6 -10; Start 07/28/17 at 14:00 Zolpidem Tartrate (Ambien) 5 mg HS PRN PO INSOMNIA; Start 07/28/17 at 14:00 Prochlorperazine (Compazine) 10 mg Q4H PRN PO NAUSEA AND/OR VOMITING Last administered on 07/29/17 05:54; Admin Dose 10 MG; Start 07/28/17 at 14:00 Trimethobenzamide HCl (Tigan) 200 mg Q4H PRN IM NAUSEA AND/OR VOMITING; Start 07/28/17 at 14:00 Ondansetron HCl (Zofran Inj) 4 mg Q6H PRN IV NAUSEA AND/OR VOMITING Last administered on 07/29/17 14:08; Admin Dose 4 MG; Start 07/28/17 at 14:00 Al Hydrox/Mg Hydrox/Simethicone (Mag-Al Plus) 15 ml Q4H PRN PO CONSTIPATION; Start 07/28/17 at 14:00 Docusate Sodium (Colace) 100 mg BID PO Last administered on 08/04/17 09:14; Admin Dose 100 MG; Start 07/29/17 at 09:00 Acetaminophen (Tylenol Tab) 650 mg Q4H PRN PO TEMP GREATER THAN 101F OR FUNEZ Last administered on 07/31/17 10:25; Admin Dose 650 MG; Start 07/28/17 at 14:00 Ascorbic Acid (Vitamin C) 1,000 mg BID PO Last administered on 08/03/17 21:45 ; Admin Dose 1,000 MG; Start 07/29/17 at 09:00 Ferrous Sulfate (Ferrous Sulfate (Ec)) 325 mg TID PO Last administered on 21:32; Admin Dose 325 MG; Start 07/29/17 at 09:00; Status Future hold Ranitidine HCl (Zantac) 150 mg BID PO Last administered on 08/03/17 09:57; Admin Dose 150 MG; Start 07/28/17 at 21:00 Diazepam (Valium) 5 mg Q4H PRN PO MUSCLE SPASMS; Start 07/28/17 at 14:00 Diazepam (Valium) 5 mg Q4H PRN IM MUSCLE SPASMS Last administered on 07/29/17 02:55; Admin Dose 5 MG; Start 07/28/17 at 14:00 Phenol (Cepastat Lozenge) 1 lozenge PRN PRN MT SORE THROAT; Start 07/28/17 at 14:00 Bethanechol Chloride (Urecholine) 25 mg PRN PRN PO UNABLE TO VOID; Start at 14:00 Diphenhydramine HCl (Benadryl) 50 mg Q6H PRN PO PRURITUS; Start 07/28/17 at 14: 00 Naloxone HCl (Narcan) 0.2 mg Q2M PRN IV RR 8 BREATHS/MIN OR LESS; Start at 14:00 Cholecalciferol (Vitamin D) 2,000 unit DAILY PO Last administered on 08/04/17 08:59; Admin Dose 2,000 UNIT; Start 07/29/17 at 09:00 Oxycodone HCl (Roxicodone) 10 mg TID PRN PO PAIN Last administered on 22:02; Admin Dose 10 MG; Start 07/28/17 at 16:30 Potassium Chloride (Klor-Con 20) 20 meq BID PO Last administered on 08/04/17 08:59; Admin Dose 20 MEQ; Start 07/29/17 at 09:00 Atorvastatin Calcium (Lipitor) 80 mg HS PO Last administered on 08/03/17 21:44 ; Admin Dose 80 MG; Start 07/30/17 at 21:00 Clonidine (Catapres) 0.1 mg Q4H PRN PO ELEVATED SYSTOLIC BP Last administered on 08/03/17 23:37; Admin Dose 0.1 MG; Start 07/30/17 at 02:30 Aspirin (Halfprin) 81 mg DAILY PO Last administered on 08/04/17 08:59; Admin Dose 81 MG; Start 07/31/17 at 09:00 Metoprolol Tartrate (Lopressor) 50 mg Q8 PO Last administered on 08/04/17 05: 54; Admin Dose 50 MG; Start 07/30/17 at 16:00 Lisinopril (Zestril) 5 mg BID PO Last administered on 08/04/17 09:01; Admin Dose 5 MG; Start 07/30/17 at 12:30 Clopidogrel Bisulfate (plaVIX) 75 mg DAILY PO Last administered on 08/04/17 08 :59; Admin Dose 75 MG; Start 07/31/17 at 09:00 Torres Funez DO Aug 04, 2017 11:46
--- NOTE | 2017-08-04 13:58 | PDOCDIS ---
Discharge Instructions CONDITION Patient Condition: Stable HOME CARE INSTRUCTIONS: Diet Instructions: Low Fat /CholesterolSpecial Diet: cardiac diet ACTIVITY: Activity Restrictions: Slowly Increase Activity Activity Restrictions Comment: Restrictions per surgeon Dr. Elliott FOLLOW UP/APPOINTMENTS Follow-up Plan Post op follow up as per surgeon Dr. Elliott. Cardiology follow up 1 week. Internal Medicine follow up 2 weeks JOHN PAUL MITCHELL MD Aug 04, 2017 13:58
[2017-08-04] MEDS ORDERED: ATOR80TA75 PO (14:06)
[2017-08-04] MEDS ORDERED: CLOP75TA28 PO (14:06)
[2017-08-04] MEDS ORDERED: METO-429 PO (14:06)
[2017-08-04] MEDS ORDERED: LISI-313 PO (14:06)
[2017-08-04] MEDS ORDERED: ASPI-664 PO (14:06)
--- NOTE | 2017-08-05 12:31 | DS ---
Date/Time of Note Date/Time of Note DATE: 08/05/17 TIME: 12:17 Discharge Summary Admission/Discharge Info Admit Date/Time Jul 28, 2017 at 07:10 Discharge Date/Time Aug 04, 2017 at 15:45 Patient Condition: Stable Consults Patient was seen by Internal Medicine, Cardiology and Orthopedics Procedures 1) Central decompressive laminectomy of L2 thru L5. 2.)Left heart catheterization and Right and left coronary angiogram via radial approach. Hx of Present Illness The patient is an 82-year-old female with persistent back and lower extremity complaints which have been unrelieved by extensive conservative management. She has undergone a number of diagnostic studies including an MRI of the lumbar spine, which demonstrates severe spinal stenosis at L2, L3, L4, and L5 with multilevel spondylosis. Hospital Course Patient was admitted and underwent Central decompressive Laminectomy of L2 thru L5. Patient postoperatively was, given her age and past medical history, was admitted to the ICU for 24 hour monitoring. While in the ICU she developed chest pain. Troponin levels and ECG were obtained and abnormal. Cardiology consult was requested. Serial troponins with ECG were ordered confirming a non ST elevation MO. She was taken for left heart catheterization with right to left angiogram. It was noted that there was no large vessel involvement, no stents were placed and she was placed on medical management. Throughout the rest of her hospitalization she remained chest pain free, clinically improved and was found to be clinically stable for discharge. Home Meds Active Scripts Aspirin* (Aspirin* EC) 81 Mg Tablet.dr, 81 MG PO DAILY for 30 Days, #100 TAB 1 Refill Prov:JOHN PAUL MITCHELL MD 08/04/17 Metoprolol Tartrate* (Lopressor*) 50 Mg Tab, 50 MG PO BID for 30 Days, #60 TAB Prov:JOHN PAUL MITCHELL MD 08/04/17 Lisinopril* (Lisinopril*) 5 Mg Tablet, 5 MG PO BID for 14 Days, #30 TAB Prov:JOHN PAUL MITCHELL MD 08/04/17 Atorvastatin* (Atorvastatin*) 80 Mg Tablet, 80 MG PO HS for 30 Days, #30 TAB 3 Refills Prov:JOHN PAUL MITCHELL MD 08/04/17 Clopidogrel Bisulfate (Clopidogrel) 75 Mg Tablet, 75 MG PO DAILY for 30 Days, # 30 TAB 3 Refills Prov:JOHN PAUL MITCHELL MD 08/04/17 Reported Medications Biotin (Biotin) 800 Mcg Tablet, 600 MCG PO DAILY, TAB 07/28/17 Cholecalciferol* (Vitamin D3*) 1,000 Unit Tablet, 2000 UNIT PO DAILY, TAB 07/28/17 Discontinued Reported Medications Oxycodone Hcl* (IR) (Oxycodone Hcl*) 5 Mg Capsule, 10 MG PO TID Y for PAIN, CAP 07/28/17 Triamterene/Hctz* (Maxzide (37.5-25)*) 1 Each Tablet, 1 EACH PO DAILY, #30 TAB 07/28/17 Bisoprolol Fumarate* (Bisoprolol Fumarate*) 5 Mg Tablet, 5 MG PO DAILY, TAB 07/28/17 Warfarin Sodium* (Coumadin*) 2 Mg Tablet, 2 MG PO MONWEDFRI, TAB 07/28/17 Warfarin Sodium* (Warfarin Sodium*) 4 Mg Tablet, 4 MG PO CHAD HERNÁNDEZ,STEFANIE, TAB 07/28/17 Follow-up Plan Post op follow up as per surgeon Dr. Elliott. Cardiology follow up 1 week. Internal Medicine follow up 2 weeks Primary Care Provider Not On Staff Doctor Time spent on discharge: > 30 minutes JOHN PAUL MITCHELL MD Aug 05, 2017 12:30
== END 2017-08-04 15:45 | disposition home or self-care (01) | DRG 515 ==
LOC: REC 07:10 → EDSTATUS 10:00 → ICU 15:34 → TEL 08-03 19:24
PROVIDERS: ADMIT Orthopaedic Surgery; ATTEND Orthopaedic Surgery
PROC: 4A11X4G Monitoring of Peripheral Nervous Electrical Activity, Intraoperative, External Approach (ICD-10-PCS; 2017-07-28)
PROC: 01NB0ZZ Release Lumbar Nerve, Open Approach (ICD-10-PCS; principal; 2017-07-28 10:00)
PROC: 4A023N7 Measurement of Cardiac Sampling and Pressure, Left Heart, Percutaneous Approach (ICD-10-PCS; 2017-08-02)
PROC: B211YZZ Fluoroscopy of Multiple Coronary Arteries using Other Contrast (ICD-10-PCS; 2017-08-02)
DX: M48.061 Spinal stenosis, lumbar region without neurogenic claudication (principal); I21.4 Non-ST elevation (NSTEMI) myocardial infarction; I10 Essential (primary) hypertension; M47.9 Spondylosis, unspecified; I25.10 Atherosclerotic heart disease of native coronary artery without angina pectoris; E78.5 Hyperlipidemia, unspecified; Z86.718 Personal history of other venous thrombosis and embolism; Z86.711 Personal history of pulmonary embolism; Z86.73 Personal history of transient ischemic attack (TIA), and cerebral infarction without residual deficits; Z79.01 Long term (current) use of anticoagulants
CPT/HCPCS: 71275; 72020; 80048; 80053; 82550; 82553; 83735; 84484; 85014; 85018; 85025; 85610; 85730; 86850; 86900; 86901; 86920; 87081; 87086; 88304; 88311; 93005; 93306; 93458; 93970; 97116; 97162; 97164; 97530; C1887; J0360; J0690; J1100; J1170; J1644; J2175; J2250; J2310; J2370; J2405; J3010; J3250; J3360; J3475; J7030; J7042; J7999; Q9967